=== PATIENT | female | born 1970 | race Caucasian/White ===

== ENCOUNTER 2017-03-11 13:22 | Emergency (ER) | payer OTHER ==
[~2017-03-11] VITALS: Ht 154.9 cm; Wt 88.0 kg
[~2017-03-11 13:22] MED LIST: AZIT-57 PO; BUPR-79 PO; CLON1TAB3 PO; RANI150T2 PO; RXC5 PO; SERT-234 PO; WARF5TAB7 PO
[2017-03-11] MEDS ORDERED: ONDANSETRON 4MG OD TAB ONE (13:31)
[2017-03-11 13:37] VITALS: TEMP 36.6; Ht 154.9 cm; Wt 88.0 kg
[2017-03-11] MEDS ORDERED: ALPR1TAB3 PO (14:56)
[2017-03-11] MEDS ORDERED: WARF5TAB7 PO (14:56)
--- NOTE | 2017-03-11 15:11 | DIAGNOSTIC IMAGING REPORT ---
HEAD WITHOUT CONTRAST (CT) CLINICAL HISTORY: 46 years-old Female with fall; stuck head on door frame; on coumadin. Acute head trauma status post fall TECHNIQUE: Multiple axial CT images of the head were obtained without contrast. A dose lowering technique was utilized adhering to the principles of ALARA. CT DOSE: 690.05 mGycm COMPARISON: Head CT 01/31/2015. FINDINGS: No acute intracranial hemorrhage, midline shift, intracranial mass, hydrocephalus, territorial ischemia or abnormal extra-axial collection. The calvarium is intact. Left mastoid air cells and middle ear cavities are clear. Right mastoid air cells are completely opacified. Fluid is also noted within the right middle ear cavity. Minimal mucosal thickening of the posterior ethmoid air cells. Soft tissues are unremarkable. IMPRESSION: 1. No acute intracranial abnormality. 2. Large right mastoid effusion with fluid also noted within the right middle ear cavity. The above report was generated using voice recognition software. It may contain grammatical, syntax or spelling errors. Electronically signed by: Cuate Cunningham M.D. 03/11/2017 3:10 PM Dictated Date/Time: 03/11/2017 3:07 PM
[2017-03-11 15:51] LABS: BASO % 0.1 %; BASO ABS # 0.02 K/uL (0-0.2); EOS % 0.1 %; EOS ABS # 0.02 K/uL (0-0.5); HEMATOCRIT 42.5 % (37-47); HEMOGLOBIN 14.6 g/dL (12.0-16.0); IG# 0.08 K/uL (0.00-0.02); LYMPH % 10.4 %; LYMPH ABS # 1.98 K/uL (1.2-3.4); MEAN CELL VOLUME 88.9 fL (80-100); MEAN CORPUSCULAR HEMOGLOBIN 30.5 pg (25-34); MEAN CORPUSCULAR HGB CONC 34.4 g/dl (32-36); MEAN PLATELET VOLUME 10.3 fL (7.4-10.4); MONO % 8.7 %; MONO ABS # 1.66 K/uL (0.11-0.59); NEUT % 80.3 %; NEUT ABS # 15.37 K/uL (1.4-6.5); PLATELET COUNT 230 K/uL (130-400); RED CELL DISTRIBUTION WIDTH CV 13.4 % (11.5-14.5); RED CELL DISTRIBUTION WIDTH SD 43.6 fL (36.4-46.3); WHITE BLOOD COUNT 19.13 K/uL (4.8-10.8)
[2017-03-11 16:04] LABS: INR 2.9 (0.9-1.1); PTT PATIENT 36.2 SECONDS (21.0-31.0)
[2017-03-11 16:12] LABS: ALBUMIN 3.5 gm/dl (3.4-5.0); BLOOD UREA NITROGEN 12 mg/dl (7-18); CALCIUM 9.3 mg/dl (8.5-10.1); CARBON DIOXIDE 25 mmol/L (21-32); CREATININE 0.79 mg/dl (0.60-1.20); GLUCOSE 85 mg/dl (70-99); POTASSIUM 3.4 mmol/L (3.5-5.1); SODIUM 139 mmol/L (136-145)
[2017-03-11 16:16] LABS: ALKALINE PHOSPHATASE 75 U/L (45-117); ALT/SGPT 21 U/L (12-78); AST/SGOT 24 U/L (15-37); TOTAL PROTEIN 7.5 gm/dl (6.4-8.2)
[2017-03-11] MEDS ORDERED: METOCLOPRAMIDE HCL INJ 5 MG/ML 2 ML VIAL IV. STA (16:43)
[2017-03-11 17:09] VITALS: BP 126/71; PULSE 76; O2SAT 94
[2017-03-11] MEDS ORDERED: METOCLOPRAMIDE HCL INJ 5 MG/ML 2 ML VIAL IM STA (17:11)
--- NOTE | 2017-03-11 17:54 | DIAGNOSTIC IMAGING REPORT ---
CHEST 2 VIEWS ROUTINE CLINICAL HISTORY: Fall. Elevated white blood cell count. COMPARISON STUDY: Chest radiograph August 15, 2015. FINDINGS: Incidental note is made of cholecystectomy clips. Lung volumes are normal. No consolidation is present. Pulmonary vascularity is normal. Cardiomediastinal silhouette is normal. IMPRESSION: No acute cardiopulmonary findings. Electronically signed by: Cali Daniels M.D. 03/11/2017 5:53 PM Dictated Date/Time: 03/11/2017 5:51 PM
--- NOTE | 2017-03-12 10:52 | EMERGENCY ROOM VISIT NOTE ---
ED Visit Note First contact with patient: 13:41 Chief Complaint: I passed out. History of Present Illness: Ms. Grier is a 46-year-old white female who is brought into the ED via ambulance after a syncopal episode. Patient reports she has been feeling well over the last few days. She reports she was visiting a friend and forgot her niacin medication. Earlier today she took one of her friends niacin medication which she believes was a stronger dose. She reports that within the hour of taking that medication she started feeling lightheaded. She reports she walked to the bathroom to splash some water on her face and when she was in the bathroom holding onto the sink she had a syncopal episode. She remembers during the syncopal episode that she struck her left parietal area on the door frame. She does not remember the next couple of minutes but is not exactly sure how long that was. She woke up with her friend standing over her yelling at her. EMS was activated and she was transported to the hospital. During transport patient was stable but had some nausea and was given 4 mg of Zofran. Currently patient is complaining of a left parietal headache in the area where she believes she struck the door frame. She describes this as a throbbing and pressure sensation. She rates her discomfort 9/10. Her pain is nonradiating. Her pain worsens with palpation of the scalp. She has not identified any alleviating factors related to the pain. She has not had any medication for pain prior to arrival at the hospital. Associated with her pain she reports she has mild blurry vision, sensations of fatigue and remains nauseated. She denies dizziness, lightheadedness, hearing changes, difficulty speaking, difficulty swallowing, difficulty coordinating body movements, neck pain, back pain, chest pain, shortness of breath, palpitations, abdominal pain, nausea, vomiting, extremity weakness/numbness/tingling, urinary incontinence, fecal incontinence. Review of Systems: As noted above in history of present illness. All body systems were reviewed and found to be negative as noted above. Past Medical History: Anxiety, depression, fibromyalgia, GERD, breast cancer, hypertension, portal thrombosis, status post hysterectomy, cholecystectomy, mastectomy and tubal ligation. Current Medications: Xanax, warfarin, ranitidine. Allergies to Medications: Adhesive, latex, acetaminophen, benzoin, naloxone, calamine, buprenorphine, tramadol, potassium, iodine, tromethamine. Social History: Patient is not employed; she feels safe in her home environment ; she admits to tobacco use. Physical Examination: Vital Signs: Date Time Temp Pulse Resp B/P (MAP) Pulse Ox O2 Delivery O2 Flow Rate FiO2 03/11/17 17:09 76 20 126/71 94 Room Air 03/11/17 15:13 82 20 108/66 93 Room Air 03/11/17 13:39 81 03/11/17 13:37 36.6 97 16 173/110 99 Room Air GENERAL: 46-year-old female in mild to moderate distress due to pain, chronically ill-appearing, afebrile and hemodynamically stable. NEUROLOGICAL: Awake, alert and oriented to person, place and time. Answering questions appropriately and following commands. Pronator drift test negative. Cranial nerves II through XII grossly intact. Good short-term and long-term recall. Good hand eye coordination. SKIN: Warm, dry and pink. No soft tissue trauma noted. HEENT: Atraumatic and normocephalic. Skull: Tenderness over the posterior aspect of the left parietal area without bony deformity, depressions, swelling or ecchymosis. No raccoon's eyes or tse signs. No drainage from the ears of the nares; no hemotympanum. Face: No bony deformity, bony tenderness, swelling or ecchymosis. PERRLA. EOMI without nystagmus. No malocclusion. Airway is patent. Speech is normal and clear. No carotid bruits. Trachea midline. No jugular venous distention. BACK: No tenderness over the bony cervical, thoracic and lumbar spines. No tenderness throughout the paraspinous muscles. Full range of motion of the cervical spine. No CVA tenderness. THORAX: Lungs sounds are clear to auscultation and equal bilaterally with symmetrical chest wall. No crepitus, tenderness, subcutaneous air or deformities noted. HEART: Regular rate and rhythm. No gallops, rubs or murmurs are appreciated. ABDOMEN: Flat, soft and nontender. Positive bowel sounds in all quadrants. No guarding, rigidity or organomegaly. EXTREMITIES: Moves all extremities well on command and with purpose. No tenderness over the shoulders, elbows, forearms, wrists, hands, hips, thighs, knees, lower legs, ankles or feet. All distal neurovascular statuses are intact and equal bilaterally. 4/5 muscle strength in movements of the shoulder , elbow, forearm, wrist, hips, knees and ankles. No calf tenderness or cords. ED Course: Patient is assessed as noted above. Patient's medication list was reviewed. Laboratory Testing: Test 03/11/17 15:25 Range/Units White Blood Count 19.13 4.8-10.8 K/uL Red Blood Count 4.78 4.2-5.4 M/uL Hemoglobin 14.6 12.0-16.0 g/dL Hematocrit 42.5 37-47 % Mean Corpuscular Volume 88.9 80-100 fL Mean Corpuscular Hemoglobin 30.5 25-34 pg Mean Corpuscular Hemoglobin Concent 34.4 32-36 g/dl Platelet Count 230 130-400 K/uL Mean Platelet Volume 10.3 7.4-10.4 fL Neutrophils (%) (Auto) 80.3 % Lymphocytes (%) (Auto) 10.4 % Monocytes (%) (Auto) 8.7 % Eosinophils (%) (Auto) 0.1 % Basophils (%) (Auto) 0.1 % Neutrophils # (Auto) 15.37 1.4-6.5 K/uL Lymphocytes # (Auto) 1.98 1.2-3.4 K/uL Monocytes # (Auto) 1.66 0.11-0.59 K/uL Eosinophils # (Auto) 0.02 0-0.5 K/uL Basophils # (Auto) 0.02 0-0.2 K/uL RDW Standard Deviation 43.6 36.4-46.3 fL RDW Coefficient of Variation 13.4 11.5-14.5 % Immature Granulocyte % (Auto) 0.4 % Immature Granulocyte # (Auto) 0.08 0.00-0.02 K/uL Prothrombin Time 30.2 9.0-12.0 SECONDS Prothromb Time International Ratio 2.9 0.9-1.1 Activated Partial Thromboplast Time 36.2 21.0-31.0 SECONDS Partial Thromboplastin Ratio 1.4 Sodium Level 139 136-145 mmol/L Potassium Level 3.4 3.5-5.1 mmol/L Chloride Level 105 98-107 mmol/L Carbon Dioxide Level 25 21-32 mmol/L Anion Gap 9.0 3-11 mmol/L Blood Urea Nitrogen 12 7-18 mg/dl Creatinine 0.79 0.60-1.20 mg/dl Est Creatinine Clear Calc Drug Dose 89.7 ml/min Estimated GFR () 104.0 Estimated GFR (Non- 89.8 BUN/Creatinine Ratio 14.8 10-20 Random Glucose 85 70-99 mg/dl Calcium Level 9.3 8.5-10.1 mg/dl Total Bilirubin 0.5 0.2-1 mg/dl Direct Bilirubin < 0.1 0-0.2 mg/dl Aspartate Amino Transf (AST/SGOT) 24 15-37 U/L Alanine Aminotransferase (ALT/SGPT) 21 12-78 U/L Alkaline Phosphatase 75 45-117 U/L Troponin I < 0.015 0-0.045 ng/ml Total Protein 7.5 6.4-8.2 gm/dl Albumin 3.5 3.4-5.0 gm/dl Should be noted that patient was asked for urine for testing and refused. Head CT: Was reviewed by myself and read by the radiologist showing no acute intracranial abnormalities or skull fractures. Radiologist does note a large right mastoid effusion with fluid and fluid within the right middle ear cavity. Chest X-Rays: Were read by myself and the radiologist showing no acute infiltrates, effusions or pneumothorax. No bony abnormalities and a normal heart silhouette. EKG: Was read by myself and shows normal sinus rhythm with a ventricular rate of 83 bpm. Normal axis, normal zinc complexes. No acute ST changes indicating ischemia, injury or infarction. This was compared to a previous from July 2015 and no acute changes were noted. During her stay IV attempts were made and were unsuccessful. She requested additional nausea medication and asked not to be given Zofran because she did not feel it was working. I did offer Reglan and because her IV was not initiated I was going to give it IM but she refused. I did additionally offer Zofran and she refused. Additionally she requested medication for headache; I reviewed her medication list and it appeared the only medication I could give her was narcotics but did not feel comfortable because of her head injury and her nausea. I discussed this issue with the patient and did find that she does not really have an allergic reaction to acetaminophen it was actually nausea and vomiting related to acetaminophen mixed with narcotics. I did offer the patient acetaminophen and she refused. Patient was reassessed multiple times during her stay in the emergency department. On review of the literature it appears that niacin can cause orthostatic hypotension; I did review this with the pharmacist. Patient's case was reviewed with Dr. Ron; we agreed on diagnostic approach, treatment, disposition and plan. Patient was educated about today's findings and instructed on her treatment plan ; she verbalized understanding and agreement with this plan. Clinical Impression: Concussion, syncope, leukocytosis. Decision-Making: Initially my differential diagnosis I considered syncope, arrhythmia, electrolyte abnormality, medication reaction, concussion, skull fracture, intercranial bleed, infection and other causes. Disposition: Patient discharged home in stable condition; after patient was discharged in was noted that she had difficulty finding a ride home from the hospital and she was offered assistance and refused. It was reported that she was able to contact her sister came to pick her up from the hospital. On discharge she still complained of a headache and nausea. She rated her headache 10/10 but refused any additional care. Plan: Patient was encouraged to avoid taking other people's medications and only her arm. Patient was encouraged to continue her current medications. Patient was encouraged to use 650 mg of acetaminophen every 6 hours as needed for pain. Patient was informed that her INR level was 2.9 which was the upper limits of normal for someone on Coumadin and I encouraged her to contact the Coumadin clinic and relay this information. Patient was informed that her white blood cell count was elevated and I could not find a cause of this; she was encouraged to contact her family physician for recheck of her white blood cell count levels. Patient was educated on signs of worsening head injury. Patient was given contact information for the [facility] and encouraged to follow up with the concussion clinic. Patient was encouraged to return to the ED for any signs of worsening concussion , fevers or any new/concerning symptoms.
== END 2017-03-11 18:33 | disposition home or self-care (01) ==
LOC: EDBD 13:22 → C.EDA 13:23
DX: S06.0X1A Concussion with loss of consciousness of 30 minutes or less, initial encounter (principal); W01.198A Fall on same level from slipping, tripping and stumbling with subsequent striking against other object, initial encounter; Y92.89 Other specified places as the place of occurrence of the external cause; F41.9 Anxiety disorder, unspecified; F32.9 Major depressive disorder, single episode, unspecified; M79.7 Fibromyalgia; K21.9 Gastro-esophageal reflux disease without esophagitis; Z85.3 Personal history of malignant neoplasm of breast; I10 Essential (primary) hypertension; Z90.710 Acquired absence of both cervix and uterus; Z90.49 Acquired absence of other specified parts of digestive tract; Z98.51 Tubal ligation status; Z90.10 Acquired absence of unspecified breast and nipple; Z79.01 Long term (current) use of anticoagulants; Z79.899 Other long term (current) drug therapy

== ENCOUNTER 2021-08-20 14:01 | Observation (INO) ==
[2021-08-20] MEDS ORDERED: SODIUM CHLORIDE 0.9% 500 ML IV STA (15:21)
[2021-08-20 16:32] LABS: Hematocrit (blood only) 38.9 % (37-47); Mean Corpuscular Hemoglobin 29.7 pg (25-34); Mean Corpuscular Hgb Conc 33.4 g/dL (32-36); Mean Corpuscular Volume 88.8 fL (80-100); Mean Platelet Volume 9.5 fL (7.4-10.4); Platelet Count 284 K/uL (130-400); RDW Coefficient of Variation 12.6 % (11.5-14.5); RDW Standard Deviation 40.7 fL (36.4-46.3); Red Blood Count 4.38 M/uL (4.2-5.4); White Blood Count 14.41 K/uL (4.8-10.8)
[2021-08-20 16:53] LABS: BUN Creatinine Ratio 28.3 (10-20); Calcium 9.5 mg/dl (8.5-10.1); Creatinine Clr Calc Pharmacy 141.6 ml/min; Est GFR (African American) 134.4 ml/min; Potassium 3.4 mmol/L (3.5-5.1)
[2021-08-20] MEDS ORDERED: SODIUM CHLORIDE 0.9% 1000ML 2,000 ML IV ONE (16:55)
--- NOTE | 2021-08-20 17:11 | Emergency Department Note ---
Impression & Plan Back pain, Abdominal pain, Chest pain ED Provider Note NAME: IVA GEORGE AGE: 50 SEX: F : 1970 ARRIVES VIA: Ambulance INFORMANT: Patient ED PROVIDER(S): Morgan Schneider DO CHIEF COMPLAINT: back pain HPI: Patient is a 50-year-old female who presents to the ER for back pain and abdominal pain. She notes it started about 3 days ago with severe lower abdomi nal pain. She has lower back pain associated with it. She notes she has been crawling around on the floor due to her back pain which is worse with standing up as well as twisting, turning, and bending. She believes her left leg feels little weaker than normal but cannot tell if this is just secondary to pain as with any movement she has severe 10 out of 10 pain which is sharp and stabbing. Denies any dysuria, urgency, or frequency. She denies any fevers, trauma, IV drug use or history of cancer. 3 days ago when it started she did have some belly pain which radiate up into the chest which has not reoccurred since 3 days ago. ROS: See above HPI for pertinent positives & negatives. A total of 10 systems reviewed and were otherwise negative. PAST MEDICAL HISTORY:See Below PAST SURGICAL HISTORY:See Below FAMILY HISTORY:See Below SOCIAL HISTORY:See Below HOME MEDICATIONS:See Below ALLERGIES:See Below VITALS:See Below PHYSICAL EXAMINATION: GENERAL: Laying in bed, alert, disheveled, mild distress laying in bed EYE EXAM: normal conjunctiva. OROPHARYNX: mucous membranes are moist LUNGS: Clear to auscultation. Normal chest wall mechanics HEART: no murmurs, S1 normal and S2 normal ABDOMEN: abdomen soft, non-tender, normo-active bowel sounds, no masses, no rebound or guarding. BACK: Back is symmetrical on inspection and there is no deformity, mild midline tenderness in the lower lumbar region tracking up through bilateral glutes UPPER EXTREMITIES: upper extremities are grossly normal. LOWER EXTREMITIES: Flexion and extension of the hips, knees, ankles, and EHL 5/5 bilaterally. Gross sensation is intact. DPs are 2/4 bilateral. NEURO EXAM: Normal sensorium, cranial nerves II-XII grossly intact, normal speech, no gross weakness of arms, no gross weakness of legs. MEDICAL DECISION MAKING: Patient is a 50-year-old female who presents the ER for abdominal pain and back pain as well as short period of chest pain 3 days ago when this all started. IV was established blood work was obtained. She was found to be slightly hypertensive and mildly tachycardic. Afebrile. Labs show mild leukocytosis of 14,000. No significant anemia. BMP with mild hypokalemia 3.4. LFTs bilirubin and troponin was negative. Lipase was unremarkable. UA with small amount of hematuria. was negative. She was also given additional steroids. She was discussed with the hospitalist Dr. Bang Corcoran for further evaluation CT abdomen pelvis and CT lumbar spine showed no acute pathology. Patient was given IV fluids and IV morphine. She is updated bedside. She was unable to get out of bed Triage Nursing notes reviewed. Limited review of prior medical records performed Vital Signs: reviewed and remarkable for HTN and tachy Differential diagnosis: Differential diagnoses includes but is not limited to lumbar radiculopathy, kidney stone, muscle strain, facture, cauda equina, mass, and disc herniation. ER treatment provided: See below Diagnostics interpreted by me: ECG: Sinus rhythm rate of 96 Normal axis No PVCs QTC 439 Cardiac Monitoring: An order was placed for continuous cardiac monitoring. The monitor shows a rate of 92 with sinus rhythm. Laboratory studies: As stated above and show below. Imaging studies: Abdomen pelvis was unremarkable CT lumbar spine was unremarkable Consultation(s): D/w Dr. Bang Liao for further evaluation Procedures: none Critical Care: None Past Med/Surg History Medical History GERD (gastroesophageal reflux disease) HTN (hypertension) PTSD (post-traumatic stress disorder) Surgical History H/O: hysterectomy History of cholecystectomy History of mastectomy History of tubal ligation No pertinent past surgical history Social History Smoking Status: Current every day smoker Tobacco Type: Cigarettes Preferred Language: Norwegian Feels Safe at Home: Yes Allergies Allergies Allergy/AdvReac Type Severity Reaction Status Date / Time latex Allergy Intermediate RASH Verified 08/20/21 17:52 acetaminophen Allergy Mild GI UPSET Verified 08/20/21 17:52 adhesive Allergy Mild PAPER Verified 08/20/21 17:52 TAPE- RASH strawberry Allergy Mild RASH Verified 08/20/21 17:52 benzoin Allergy Unknown . Verified 08/20/21 17:52 calamine Allergy Unknown RASH Verified 08/20/21 17:52 Iodine and Iodide Containing Allergy Unknown "GNP Verified 08/20/21 17:52 Produc IODIDES DECOLORIZED" ketorolac Allergy Unknown rash, Verified 08/20/21 17:52 vomiting tramadol Allergy Unknown rash, Verified 08/20/21 17:52 vomiting acesulfame AdvReac Unknown Ulcers/sores Verified 08/20/21 17:52 on tongue. buprenorphine AdvReac Unknown Ulcers/sores Verified 12/07/20 17:13 on tongue. naloxone AdvReac Unknown Ulcers/sores Verified 12/07/20 17:13 on tongue. Home Meds Home Medications Medication Instructions Recorded Confirmed bupropion HCl 150 mg tablet,12 hr 150 mg PO DAILY 08/20/21 08/20/21 sustained-release fluticasone propionate 50 1 - 2 spray INTRANASAL DAILY PRN 08/20/21 08/20/21 mcg/actuation nasal spray,suspension omeprazole 20 mg capsule,delayed 20 mg PO DAILY 08/20/21 08/20/21 release ondansetron HCl 8 mg tablet 8 mg PO DAILY PRN 08/20/21 08/20/21 sertraline 100 mg tablet 100 mg PO DAILY 08/20/21 08/20/21 Results & Data (ED) Vital Signs Vital Signs - 24 hr 08/20/21 15:19 08/20/21 16:46 08/20/21 17:59 Temperature 36.8 C 36.9 C Temperature Source Temporal Artery Scan Oral Pulse Rate 93 H Pulse Rate [Apical] 100 H 99 H Respiratory Rate 18 20 16 Respiratory Effort / Characteristics Non-Labored Non-Labored Non-Labored Spontaneous Respiratory Depth Normal Normal Normal Respiratory Pattern Regular Blood Pressure 125/83 Blood Pressure [Right Arm] 174/101 H 146/99 H Blood Pressure Mean 97 Blood Pressure Mean [Right Arm] 125 114 Blood Pressure Position [Right Arm] Sitting Lying Pulse Oximetry 95 98 96 Oxygen Delivery Method Room Air Room Air Room Air Sepsis Recent Fever Within 48 Hours No Sepsis New/Unexplained Change in Mental Status No Sepsis Action Taken by Nursing No Action Required Laboratory Data Result diagrams: 08/20/21 16:15 08/20/21 16:15 Lab Results 08/20/21 08/20/21 08/20/21 Range/Units 16:15 16:15 16:15 WBC 14.41 H (4.8-10.8) K/uL RBC 4.38 (4.2-5.4) M/uL Hgb 13.0 (12.0-16.0) g/dL Hct 38.9 (37-47) % MCV 88.8 (80-100) fL MCH 29.7 (25-34) pg MCHC 33.4 (32-36) g/dL RDW Std Deviation 40.7 (36.4-46.3) fL RDW Coeff of Caitlin 12.6 (11.5-14.5) % Plt Count 284 (130-400) K/uL MPV 9.5 (7.4-10.4) fL Sodium 137 (136-145) mmol/L Potassium 3.4 L (3.5-5.1) mmol/L Chloride 100 (98-107) mmol/L Carbon Dioxide 27 (21-32) mmol/L Anion Gap 10 (3-11) BUN 13 (6-23) mg/dl Creatinine 0.46 L (0.6-1.2) mg/dl Est Cr Clr Drug Dosing 141.6 ml/min Est GFR ( Amer) 134.4 ml/min Est GFR (Non-Af Amer) 116.0 ml/min BUN/Creatinine Ratio 28.3 H (10-20) Glucose 122 H (70-99(Fasting)) mg/dl Calcium 9.5 (8.5-10.1) mg/dl Total Bilirubin 0.8 (0.2-1.0) mg/dl Direct Bilirubin 0.1 (0-0.2) mg/dl AST 13 (13-39) U/L ALT 10 (7-52) U/L Alkaline Phosphatase 79 (34-104) U/L Troponin I High Sens 8.2 (0-14) pg/ml Total Protein 7.8 (6.0-8.3) gm/dl Albumin 4.0 (3.4-5.0) gm/dl Lipase 6 L (11-82) U/L Urine Color Urine Appearance (Clear) Urine pH (4.5-7.5) Ur Specific [place] (1.000-1.030) Urine Protein (Negative) Urine Glucose (UA) (Negative) Urine Ketones (Negative) Urine Blood (Negative) Urine Nitrite (Negative) Urine Bilirubin (Negative) Urine Urobilinogen (Negative) Ur Leukocyte Esterase (Negative) Urine WBC (Auto) (0-5) /hpf Urine RBC (Auto) (0-4) /hpf U Hyaline Cast (Auto) (0-5) /lpf U Epithel Cells (Auto) (0-5) /lpf Urine Bacteria (Auto) (Negative) Urine Test (Negative) 08/20/21 08/20/21 Range/Units 18:40 18:40 WBC (4.8-10.8) K/uL RBC (4.2-5.4) M/uL Hgb (12.0-16.0) g/dL Hct (37-47) % MCV (80-100) fL MCH (25-34) pg MCHC (32-36) g/dL RDW Std Deviation (36.4-46.3) fL RDW Coeff of Caitlin (11.5-14.5) % Plt Count (130-400) K/uL MPV (7.4-10.4) fL Sodium (136-145) mmol/L Potassium (3.5-5.1) mmol/L Chloride (98-107) mmol/L Carbon Dioxide (21-32) mmol/L Anion Gap (3-11) BUN (6-23) mg/dl Creatinine (0.6-1.2) mg/dl Est Cr Clr Drug Dosing ml/min Est GFR ( Amer) ml/min Est GFR (Non-Af Amer) ml/min BUN/Creatinine Ratio (10-20) Glucose (70-99(Fasting)) mg/dl Calcium (8.5-10.1) mg/dl Total Bilirubin (0.2-1.0) mg/dl Direct Bilirubin (0-0.2) mg/dl AST (13-39) U/L ALT (7-52) U/L Alkaline Phosphatase (34-104) U/L Troponin I High Sens (0-14) pg/ml Total Protein (6.0-8.3) gm/dl Albumin (3.4-5.0) gm/dl Lipase (11-82) U/L Urine Color Yellow Urine Appearance Clear (Clear) Urine pH 7.0 (4.5-7.5) Ur Specific [place] 1.007 (1.000-1.030) Urine Protein Trace H (Negative) Urine Glucose (UA) Negative (Negative) Urine Ketones Trace H (Negative) Urine Blood 1+ H (Negative) Urine Nitrite Negative (Negative) Urine Bilirubin Negative (Negative) Urine Urobilinogen Negative (Negative) Ur Leukocyte Esterase Negative (Negative) Urine WBC (Auto) 1-5 (0-5) /hpf Urine RBC (Auto) 0-4 (0-4) /hpf U Hyaline Cast (Auto) 0 (0-5) /lpf U Epithel Cells (Auto) >30 H (0-5) /lpf Urine Bacteria (Auto) Negative (Negative) Urine Test Negative (Negative) Administered Medications Discontinued Medications Dexamethasone Sodium Phosphate (DexamethasonePf 10 Mg/Ml Vial) 10 mg IV NOW ONE Stop: 08/20/21 19:03 Last Admin: 08/20/21 19:07 Dose: 10 mg Documented by: [id number] Sodium Chloride (Nss) 500 mls @ 999 mls/hr IV .Q31M STA Stop: 08/20/21 15:51 Last Infusion: 08/20/21 17:27 Dose: 0 mls/hr Documented by: [id number] Admin: 08/20/21 16:55 Dose: 999 mls/hr Documented by: [id number] Sodium Chloride (Nss 1000ml) 2,000 mls @ 999 mls/hr IV .Q2H1M ONE Stop: 08/20/21 18:55 Last Admin: 08/20/21 17:18 Dose: 999 mls/hr Documented by: [id number] Morphine Sulfate (Morphine Sulfate 10 Mg/Ml Carp/Vial) 6 mg IV NOW STA Stop: 08/20/21 17:45 Last Admin: 08/20/21 17:57 Dose: 6 mg Documented by: [id number] Ondansetron HCl (Ondansetron Inj 2 Mg/Ml 2 Ml Vial) 4 mg IV NOW STA Stop: 08/20/21 17:45 Last Admin: 08/20/21 17:56 Dose: 4 mg Documented by: [id number] Imaging Data Radiologist's Impression: Abdomen/Pelvis CT 08/20/21 16:56 CT abd pelvis wo con CLINICAL HISTORY: lower abd pain COMPARISON STUDY: No previous studies for comparison. CT DOSE: TECHNIQUE: Standard CT of the Abdomen and Pelvis was performed without IV contrast. The patient did not receive oral contrast. A dose lowering technique was utilized adhering to the principles of ALARA. FINDINGS: Lung base: Minimal linear atelectasis versus scarring is seen at the lung bases bilaterally. The lung bases are otherwise clear. Abdominal cavity: There is no evidence for abdominal mass, adenopathy or ascites. Liver: The liver is homogeneous in attenuation on these limited noncontrast images.. Spleen: The spleen is homogeneous in attenuation on these limited noncontrast images. Pancreas: The pancreas is homogeneous in attenuation on these limited noncontrast images. Gall Bladder: Surgical clips are present. Adrenal glands: The adrenal glands are normal in size and attenuation on these limited noncontrast images. Kidneys: The kidneys are homogeneous in attenuation on these limited noncontrast images. There is no evidence for gross renal mass, calculus or hydronephrosis bilaterally. Bowel: The bowel loops are normally placed within the abdomen and pelvis without evidence for dilatation or obstruction. There is no evidence for mass lesion. There are no inflammatory changes present. There is no evidence for free air. There is a normal appendix in the right lower quadrant. Bladder: There is mild distention of the bladder with no evidence for focal bladder wall thickening, calculus or diverticulum. : There is no evidence for pelvic mass or adenopathy. Vasculature: There is no evidence for focal aneurysmal dilatation of the abdominal aorta. Osseous structures: There is no acute osseous pathology. IMPRESSION: 1. No acute intra-abdominal or pelvic abnormality on these limited noncontrast images. ACT 112: Negative or not required by law. Electronically signed by: Lukas Haddad M.D. 08/20/2021 6:[address] 08/20/21 16:56 CT lumbar spine wo con CLINICAL HISTORY: lower back pain COMPARISON STUDY: 12/24/2009 CT DOSE: 711.61 mGy.cm TECHNIQUE: Standard CT of the Lumbar Spine was performed without IV contrast. A dose lowering technique was utilized adhering to the principles of ALARA. FINDINGS: Bones: The bones are osteopenic. There is no evidence for an acute fracture or malalignment. The heights of the vertebral bodies are maintained. The vertebral bodies are in anatomic alignment. Disc spaces: The disc space heights are maintained. Facet joints: There is mild hypertrophic facet joint disease at the lower 2 disc space levels. The sacroiliac joints are intact bilaterally. Soft tissues: The prevertebral soft tissues are within normal limits. IMPRESSION: 1. Osteopenia with no acute abnormality. 2. Mild hypertrophic facet joint disease. ACT 112: Negative or not required by law. Electronically signed by: Lukas Haddad M.D. 08/20/2021 5:58 PM Discharge Plan Visit Data Chief Complaint: Flank Pain ED Provider: Morgan Schneider Discharge Problem: Back pain, Abdominal pain, Chest pain Forms Stand Alone Forms: [facility] Prescriptions Prescriptions: No Action bupropion HCl 150 mg tablet sustained-release 12 hr 150 mg PO DAILY RF: 0 ondansetron HCl 8 mg tablet 8 mg PO DAILY PRN (Reason: Nausea) RF: 0 sertraline 100 mg tablet 100 mg PO DAILY RF: 0 omeprazole 20 mg capsule,delayed release(DR/EC) 20 mg PO DAILY RF: 0 fluticasone propionate 50 mcg/actuation spray,suspension 1 - 2 spray INTRANASAL DAILY PRN (Reason: Nasal Congestion) RF: 0 Referrals Referrals: PCP,NO [Primary Care Provider] - Discharge Problem: Back pain Qualifiers: Back pain location: low back pain Chronicity: acute Back pain laterality: unspecified Sciatica presence: unspecified whether sciatica present Qualified Code(s): M54.50 - Low back pain, unspecified Abdominal pain Qualifiers: Abdominal location: unspecified location Qualified Code(s): R10.9 - Unspecified abdominal pain Chest pain Qualifiers: Chest pain type: unspecified Qualified Code(s): R07.9 - Chest pain, unspecified
[2021-08-20 17:40] LABS: Bilirubin Direct 0.1 mg/dl (0-0.2); Bilirubin,Total 0.8 mg/dl (0.2-1.0); Total Protein 7.8 gm/dl (6.0-8.3)
[2021-08-20] MEDS ORDERED: MoRPHine SULFATE 10 MG/ML CARP/VIAL IV STA (17:44)
[2021-08-20] MEDS ORDERED: ONDANSETRON INJ 2 MG/ML 2 ML VIAL IV STA (17:44)
[2021-08-20 17:45] LABS: Troponin I High Sensitivity 8.2 pg/ml (0-14)
--- NOTE | 2021-08-20 18:01 | CT Scan Report ---
CT lumbar spine wo con CLINICAL HISTORY: lower back pain COMPARISON STUDY: 12/24/2009 CT DOSE: 711.61 mGy.cm TECHNIQUE: Standard CT of the Lumbar Spine was performed without IV contrast. A dose lowering techni que was utilized adhering to the principles of ALARA. FINDINGS: Bones: The bones are osteopenic. There is no evidence for an acute fracture or malalignment. The heig hts of the vertebral bodies are maintained. The vertebral bodies are in anatomic alignment. Disc spaces: The disc space heights are maintained. Facet joints: There is mild hypertrophic facet joint disease at the lower 2 disc space levels. The sa croiliac joints are intact bilaterally. Soft tissues: The prevertebral soft tissues are within normal limits. IMPRESSION: 1. Osteopenia with no acute abnormality. 2. Mild hypertrophic facet joint disease. ACT 112: Negative or not required by law. Electronically signed by: Lukas Haddad M.D. 08/20/2021 5:58 PM
--- NOTE | 2021-08-20 18:06 | CT Scan Report ---
CT abd pelvis wo con CLINICAL HISTORY: lower abd pain COMPARISON STUDY: No previous studies for comparison. CT DOSE: TECHNIQUE: Standard CT of the Abdomen and Pelvis was performed without IV contrast. The patient did not receive oral contrast. A dose lowering technique was utilized adhering to the principles of SANAZ [place]. FINDINGS: Lung base: Minimal linear atelectasis versus scarring is seen at the lung bases bilaterally. The lung bases are otherwise clear. Abdominal cavity: There is no evidence for abdominal mass, adenopathy or ascites. Liver: The liver is homogeneous in attenuation on these limited noncontrast images.. Spleen: The spleen is homogeneous in attenuation on these limited noncontrast images. Pancreas: The pancreas is homogeneous in attenuation on these limited noncontrast images. Gall Bladder: Surgical clips are present. Adrenal glands: The adrenal glands are normal in size and attenuation on these limited noncontrast im ages. Kidneys: The kidneys are homogeneous in attenuation on these limited noncontrast images. There is no evidence for gross renal mass, calculus or hydronephrosis bilaterally. Bowel: The bowel loops are normally placed within the abdomen and pelvis without evidence for dilatat ion or obstruction. There is no evidence for mass lesion. There are no inflammatory changes present. There is no evidence for free air. There is a normal appendix in the right lower quadrant. Bladder: There is mild distention of the bladder with no evidence for focal bladder wall thickening, calculus or diverticulum. : There is no evidence for pelvic mass or adenopathy. Vasculature: There is no evidence for focal aneurysmal dilatation of the abdominal aorta. Osseous structures: There is no acute osseous pathology. IMPRESSION: 1. No acute intra-abdominal or pelvic abnormality on these limited noncontrast images. ACT 112: Negative or not required by law. Electronically signed by: Lukas Haddad M.D. 08/20/2021 6:04 PM
[2021-08-20 18:51] LABS: Pregnancy Test, Urine Negative (Negative)
[2021-08-20 18:53] LABS: Appearance Urine Clear (Clear); Bacteria Urine Automated Negative (Negative); Bilirubin Urine Negative (Negative); Blood Urine 1+ (Negative); Cast Urine Automated 0 /lpf (0-5); Color Urine Yellow; Epithelial Cell Urine Auto >30 /lpf (0-5); Glucose Urine UA Negative (Negative); Ketones Urine Trace (Negative); Leukocyte Esterase Urine Negative (Negative); Nitrite Urine Negative (Negative); Protein Urine Trace (Negative); RBC Urine Automated 0-4 /hpf (0-4); Specific Gravity Urine 1.007 (1.000-1.030); Urobilinogen Urine Negative (Negative)
[2021-08-20] MEDS ORDERED: dexAMETHasone**PF** 10 MG/ML VIAL IV ONE (19:02)
[2021-08-20] MEDS ORDERED: POTASSIUM CHLORIDE CRTAB 20 MEQ TABCR PO STA (19:19)
[2021-08-20] MEDS ORDERED: ACETAMINOPHEN 1,000 MG/100 ML VIAL IV PRN (20:01)
--- NOTE | 2021-08-20 20:01 | History & Physical Report ---
Date of Service August 20, 2021 Assessment & Plan (1) Back pain: Plan: With radiculopathy symptoms Sudden onset without trauma history Need to rule out tumor given history of left breast cancer status post surgery/chemotherapy/history of BRCA gene mutation Suboptimal/anxiety possibly contributing to symptoms History chronic pain/fibromyalgia History terminated medication use agreement as per records. Hypertension, elevated upon arrival at the ER secondary to discomfort Currently not on maintenance medications portal vein thrombosis status post Coumadin Hypokalemia secondary to poor p.o. intake Hyperglycemia rule out DM ongoing tobacco abuse OBS GMF Analgesia Judicious narcotic use given history of terminated medication use agreement outpatient Lidoderm patch trial MRI lumbar spine Re: Back pain with radiculopathy symptoms sudden onset Orthopedic spine consult in a.m. Replace potassium Check hemoglobin A1c Nicotine patch as needed DVT prophylaxis. SCDs until MRI results known Lovenox 40 mg subcutaneous daily if no operative intervention contemplated Full code Text document was generated using Scripped voice recognition software. It may contain grammatical or spelling errors. Kindly contact undersigned for clarification of any documentation item in question. History of Present Illness Chief Complaint: Back pain, leg weakness Primary Care Provider: Dr. Daley History obtained from patient and records. Medical history significant for hypertension, left breast cancer status post surgery/chemotherapy, history of BRCA gene mutation, chronic pain/fibromyalgia, anxiety DSO/mood DSO/PTSD, history portal vein thrombosis status post Coumadin, ongoing tobacco abuse. Last confinement 2015 for back pain with right leg pain in the setting of Coumadin coagulopathy. 3 days ago, patient noted achy low back pain going to her abdomen with radiation more to the right lower extremity. Bilateral leg weakness more than the right. No incontinence. Fever. Some chills as per patient. No recollection of recent trauma. Some stressors at home. 2 weeks ago, patient noted abdominal pain attributed to anxiety/panic attack. Patient demanding for benzodiazepine medications upset that family doctor would not give into requests due to talk screen showing amphetamines as per documentation. Intractable discomfort at the ER. Decadron given at the ER. Medical History as above Surgical History : Breast capsulectomy, left mastectomy, breast prosthesis insertion, cholecystectomy, BTL, ENDER Family History : Breast cancer Personal/Social history : 1 pack daily, no EtOH intake, disabled Allergies Allergy/AdvReac Type Severity Reaction Status Date / Time latex Allergy Intermediate RASH Verified 08/20/21 17:52 adhesive Allergy Mild PAPER Verified 08/20/21 17:52 TAPE- RASH strawberry Allergy Mild RASH Verified 08/20/21 17:52 benzoin Allergy Unknown . Verified 08/20/21 17:52 calamine Allergy Unknown RASH Verified 08/20/21 17:52 Iodine and Iodide Containing Allergy Unknown "GNP Verified 08/20/21 17:52 Produc IODIDES DECOLORIZED" ketorolac Allergy Unknown rash, Verified 08/20/21 17:52 vomiting tramadol Allergy Unknown rash, Verified 08/20/21 17:52 vomiting acesulfame AdvReac Unknown Ulcers/sores Verified 08/20/21 17:52 on tongue. buprenorphine AdvReac Unknown Ulcers/sores Verified 12/07/20 17:13 on tongue. naloxone AdvReac Unknown Ulcers/sores Verified 12/07/20 17:13 on tongue. Home Medications Medication Instructions Recorded Confirmed Type bupropion HCl 150 mg tablet,12 hr 150 mg PO DAILY 08/20/21 08/20/21 History sustained-release fluticasone propionate 50 1 - 2 spray INTRANASAL DAILY PRN 08/20/21 08/20/21 History mcg/actuation nasal spray,suspension omeprazole 20 mg capsule,delayed 20 mg PO DAILY 08/20/21 08/20/21 History release ondansetron HCl 8 mg tablet 8 mg PO DAILY PRN 08/20/21 08/20/21 History sertraline 100 mg tablet 100 mg PO DAILY 08/20/21 08/20/21 History Past Med/Surg History Medical History GERD (gastroesophageal reflux disease) HTN (hypertension) PTSD (post-traumatic stress disorder) Surgical History H/O: hysterectomy History of cholecystectomy History of mastectomy History of tubal ligation No pertinent past surgical history Social History Smoking Status: Current every day smoker Tobacco Type: Cigarettes Preferred Language: Maori Feels Safe at Home: Yes Review of Systems Review of Systems: As per HPI, all other systems reviewed and negative Physical Exam Physical Exam: GENERAL: uncomfortable anxious, obese, no respiratory distress SKIN: Normal color, warm HEENT: Haring palpebral conjunctivae, no ptosis, dry buccal mucosa NECK : Supple, short neck, no tenderness CHEST : CTA, no tenderness HEART : RRR, no obvious murmurs ABDOMEN: Some distention, nontender BACK : Low back tenderness, positive SLR bilateral EXTREMITIES : Minimal LE swelling, no LE tenderness, no other conspicuous deformities noted NEUROLOGIC : Coherent, no facial asymmetry, BUE 4/5, BLE 3/5, gait and stance not assessed Results & Data Results & Data ([facility]) Vital Signs (Past 12 Hours) Vital Signs Temp Pulse Pulse Resp BP BP Pulse Ox 08/20/21 17:59 99 H 16 146/99 H 96 08/20/21 16:46 36.9 C 100 H 20 174/101 H 98 08/20/21 15:19 36.8 C 93 H 18 125/83 95 Laboratory Results Laboratory Results WBC 14.41 K/uL (4.8-10.8) H 08/20/21 16:15 RBC 4.38 M/uL (4.2-5.4) 08/20/21 16:15 Hgb 13.0 g/dL (12.0-16.0) 08/20/21 16:15 Hct 38.9 % (37-47) 08/20/21 16:15 MCV 88.8 fL (80-100) 08/20/21 16:15 MCH 29.7 pg (25-34) 08/20/21 16:15 MCHC 33.4 g/dL (32-36) 08/20/21 16:15 RDW Std Deviation 40.7 fL (36.4-46.3) 08/20/21 16:15 RDW Coeff of Caitlin 12.6 % (11.5-14.5) 08/20/21 16:15 Plt Count 284 K/uL (130-400) 08/20/21 16:15 MPV 9.5 fL (7.4-10.4) 08/20/21 16:15 Sodium 137 mmol/L (136-145) 08/20/21 16:15 Potassium 3.4 mmol/L (3.5-5.1) L 08/20/21 16:15 Chloride 100 mmol/L (98-107) 08/20/21 16:15 Carbon Dioxide 27 mmol/L (21-32) 08/20/21 16:15 Anion Gap 10 (3-11) 08/20/21 16:15 BUN 13 mg/dl (6-23) 08/20/21 16:15 Creatinine 0.46 mg/dl (0.6-1.2) L 08/20/21 16:15 Est Cr Clr Drug Dosing 141.6 ml/min 08/20/21 16:15 Est GFR ( Amer) 134.4 ml/min 08/20/21 16:15 Est GFR (Non-Af Amer) 116.0 ml/min 08/20/21 16:15 BUN/Creatinine Ratio 28.3 (10-20) H 08/20/21 16:15 Glucose 122 mg/dl (70-99(Fasting)) H 08/20/21 16:15 Calcium 9.5 mg/dl (8.5-10.1) 08/20/21 16:15 Total Bilirubin 0.8 mg/dl (0.2-1.0) 08/20/21 16:15 Direct Bilirubin 0.1 mg/dl (0-0.2) 08/20/21 16:15 AST 13 U/L (13-39) 08/20/21 16:15 ALT 10 U/L (7-52) 08/20/21 16:15 Alkaline Phosphatase 79 U/L (34-104) 08/20/21 16:15 Troponin I High Sens 8.2 pg/ml (0-14) 08/20/21 16:15 Total Protein 7.8 gm/dl (6.0-8.3) 08/20/21 16:15 Albumin 4.0 gm/dl (3.4-5.0) 08/20/21 16:15 Lipase 6 U/L (11-82) L 08/20/21 16:15 Urine Color Yellow 08/20/21 18:40 Urine Appearance Clear (Clear) 08/20/21 18:40 Urine pH 7.0 (4.5-7.5) 08/20/21 18:40 Ur Specific Nikolski 1.007 (1.000-1.030) 08/20/21 18:40 Urine Protein Trace (Negative) H 08/20/21 18:40 Urine Glucose (UA) Negative (Negative) 08/20/21 18:40 Urine Ketones Trace (Negative) H 08/20/21 18:40 Urine Blood 1+ (Negative) H 08/20/21 18:40 Urine Nitrite Negative (Negative) 08/20/21 18:40 Urine Bilirubin Negative (Negative) 08/20/21 18:40 Urine Urobilinogen Negative (Negative) 08/20/21 18:40 Ur Leukocyte Esterase Negative (Negative) 08/20/21 18:40 Urine WBC (Auto) 1-5 /hpf (0-5) 08/20/21 18:40 Urine RBC (Auto) 0-4 /hpf (0-4) 08/20/21 18:40 U Hyaline Cast (Auto) 0 /lpf (0-5) 08/20/21 18:40 U Epithel Cells (Auto) >30 /lpf (0-5) H 08/20/21 18:40 Urine Bacteria (Auto) Negative (Negative) 08/20/21 18:40 Urine Test Negative (Negative) 08/20/21 18:40 Impressions Abdomen/Pelvis CT 08/20/21 16:56 CT abd pelvis wo con CLINICAL HISTORY: lower abd pain COMPARISON STUDY: No previous studies for comparison. CT DOSE: TECHNIQUE: Standard CT of the Abdomen and Pelvis was performed without IV contrast. The patient did not receive oral contrast. A dose lowering technique was utilized adhering to the principles of ALARA. FINDINGS: Lung base: Minimal linear atelectasis versus scarring is seen at the lung bases bilaterally. The lung bases are otherwise clear. Abdominal cavity: There is no evidence for abdominal mass, adenopathy or ascites. Liver: The liver is homogeneous in attenuation on these limited noncontrast images.. Spleen: The spleen is homogeneous in attenuation on these limited noncontrast images. Pancreas: The pancreas is homogeneous in attenuation on these limited noncontrast images. Gall Bladder: Surgical clips are present. Adrenal glands: The adrenal glands are normal in size and attenuation on these limited noncontrast images. Kidneys: The kidneys are homogeneous in attenuation on these limited noncontrast images. There is no evidence for gross renal mass, calculus or hydronephrosis bilaterally. Bowel: The bowel loops are normally placed within the abdomen and pelvis without evidence for dilatation or obstruction. There is no evidence for mass lesion. There are no inflammatory changes present. There is no evidence for free air. There is a normal appendix in the right lower quadrant. Bladder: There is mild distention of the bladder with no evidence for focal bladder wall thickening, calculus or diverticulum. : There is no evidence for pelvic mass or adenopathy. Vasculature: There is no evidence for focal aneurysmal dilatation of the abdominal aorta. Osseous structures: There is no acute osseous pathology. IMPRESSION: 1. No acute intra-abdominal or pelvic abnormality on these limited noncontrast images. ACT 112: Negative or not required by law. Electronically signed by: Lukas Haddad M.D. 08/20/2021 6:[address] 08/20/21 16:56 CT lumbar spine wo con CLINICAL HISTORY: lower back pain COMPARISON STUDY: 12/24/2009 CT DOSE: 711.61 mGy.cm TECHNIQUE: Standard CT of the Lumbar Spine was performed without IV contrast. A dose lowering technique was utilized adhering to the principles of ALARA. FINDINGS: Bones: The bones are osteopenic. There is no evidence for an acute fracture or malalignment. The heights of the vertebral bodies are maintained. The vertebral bodies are in anatomic alignment. Disc spaces: The disc space heights are maintained. Facet joints: There is mild hypertrophic facet joint disease at the lower 2 disc space levels. The sacroiliac joints are intact bilaterally. Soft tissues: The prevertebral soft tissues are within normal limits. IMPRESSION: 1. Osteopenia with no acute abnormality. 2. Mild hypertrophic facet joint disease. ACT 112: Negative or not required by law. Electronically signed by: Lukas Haddad M.D. 08/20/2021 5:58 PM Diagnostic Findings EKG as per my interpretation : Rate 95, NSR, normal axis, T wave abnormalities septal leads (1) Back pain Back pain laterality: unspecified Back pain location: low back pain Chronicity: acute Sciatica presence: unspecified whether sciatica present Qualified Code(s): M54.50 - Low back pain, unspecified
[2021-08-20] MEDS ORDERED: hydrOXYzine HCl 10 MG TAB PO PRN (20:03)
[2021-08-20] MEDS ORDERED: LACTATED RINGER'S 1,000 ML IV ONE (20:15)
[2021-08-20] MEDS ORDERED: LORazepam 0.25 MG in SYRINGE 0.125 ML IV PRN (20:15)
[2021-08-20] MEDS ORDERED: oxyCODONE HCL IR 5 MG TAB (IMMEDIATE RELEASE) ONE (20:40)
[2021-08-20] MEDS: LIDOCAINE 5% 1 PATCH TD SCH (20:45)
[2021-08-20] MEDS: oxyCODONE HCL IR 5 MG TAB (IMMEDIATE RELEASE) PO PRN (20:46)
[2021-08-20] MEDS ORDERED: ACETAMINOPHEN 325 MG TAB PO PRN (22:07)
[2021-08-21] MEDS ORDERED: LORazepam 1 MG in SYRINGE 0.5 ML IV STA (00:40)
[2021-08-21] MEDS ORDERED: GADOBUTROL 65ML VIAL IV ONE (01:46)
[2021-08-21] MEDS: oxyCODONE HCL IR 5 MG TAB (IMMEDIATE RELEASE) PO PRN ×4 (02:30→19:31)
[2021-08-21 03:51] LABS: Amphetamines+Metham, Urine Neg (Neg); Barbiturates, Urine Neg (Neg); Benzodiazepine, Urine Neg (Neg); Cocaine, Urine Neg (Neg); MDMA (Ecstacy), Urine Pos (Neg); Methadone, Urine Neg (Neg); Opiate, Urine Pos (Neg); Phencyclidine, Urine Neg (Neg)
[2021-08-21 07:08] LABS: Hematocrit (blood only) 35.9 % (37-47); Hemoglobin 12.1 g/dL (12.0-16.0); Immature Granulocytes # (auto) 0.04 K/uL (0.00-0.02); Immature Granulocytes % (auto) 0.3 %; Lymphocytes # (auto) 0.94 K/uL (1.2-3.4); Lymphocytes % (auto) 6.9 %; Mean Corpuscular Hgb Conc 33.7 g/dL (32-36); Mean Corpuscular Volume 89.1 fL (80-100); Mean Platelet Volume 9.7 fL (7.4-10.4); Monocytes # (auto) 0.41 K/uL (0.11-0.59); Neutrophils # (auto) 12.29 K/uL (1.4-6.5); Neutrophils % (auto) 89.8 %; Platelet Count 317 K/uL (130-400); RDW Coefficient of Variation 12.5 % (11.5-14.5); RDW Standard Deviation 40.1 fL (36.4-46.3); Red Blood Count 4.03 M/uL (4.2-5.4); White Blood Count 13.68 K/uL (4.8-10.8)
[2021-08-21 07:23] LABS: BUN Creatinine Ratio 26.2 (10-20); Calcium 8.9 mg/dl (8.5-10.1); Creatinine Clr Calc Pharmacy 154.5 ml/min; Est GFR (African American) 138.5 ml/min; Est GFR (Non-African American) 119.5 ml/min; Potassium 3.6 mmol/L (3.5-5.1)
[2021-08-21 07:49] LABS: Estimated Average Glucose 120 mg/dl; Hemoglobin A1C 5.8 % (4.5-5.6)
[2021-08-21] MEDS: SERTRALINE HCL 100 MG TABLET PO SCH (08:34)
[2021-08-21] MEDS: PANTOprazole 40 MG TAB PO SCH (08:34)
[2021-08-21] MEDS: buPROPion SR 150 MG TABCR PO SCH (08:34)
--- NOTE | 2021-08-21 09:10 | Magnetic Resonance Report ---
MRI OF THE LUMBAR SPINE COMBO CLINICAL HISTORY: Low back pain. Lower extremity weakness. COMPARISON STUDY: CT scan of the lumbar spine dated 08/20/2021. TECHNIQUE: MRI of the lumbar spine is performed utilizing various T1 and T2-weighted sequences in the axial and sagittal planes. Contrast-enhanced sequences are acquired following the IV administration of 8.5 cc of Gadavist. FINDINGS: Lumbar spine: Vertebral body height and alignment are maintained throughout the lumbar spine. Normal marrow signal intensity is preserved throughout the visualized bony structures. The transverse and sp inous processes appear intact. There is no evidence of spondylolysis. No definite enhancing or destru ctive bony lesion is seen. Intervertebral discs: There is moderate degenerative disc desiccation. The disc spaces are maintained . Spinal cord: The visualized spinal cord is normal in morphology and signal intensity. The conus medul john terminates at the level of L2. The nerve roots of the cauda equina are normal in morphology. No abnormal postcontrast enhancement is identified. L1-L2: Unremarkable. L2-L3: Unremarkable. L3-L4: Unremarkable. L4-L5: Mild facet arthropathy is of no consequence. The central canal and neural foramina are patent. L5-S1: There is minimal posterior disc bulge. The central canal and neural foramina are patent. Facet arthropathy is of no consequence. Sacrum: The visualized sacrum is normal in morphology and signal intensity. Soft tissues: The paraspinous soft tissues are within normal limits. The retroperitoneal structures a re grossly unremarkable but incompletely evaluated. IMPRESSION: 1. There is no disc herniation, central canal stenosis, or neural foraminal narrowing seen throughout the lumbar spine. 2. No destructive bony process is identified. Dictated: 08/21/2021 8:52 AM Transcribed: 08/21/2021 9:00 AM Isi [id number] RACHEL_Macey Electronically signed by: Lance Marcelo M.D. 08/21/2021 9:09 AM
[2021-08-21] MEDS: LIDOCAINE 5% 1 PATCH TD SCH (09:45)
--- NOTE | 2021-08-21 09:45 | Consultation ---
Date of Consultation August 21, 2021 Assessment & Plan (1) Back pain: Patient has a 3-day history of acute lower back pain with right lower extremity symptoms and perceived bilateral lower extremity weakness. I have reviewed along with Dr. Cox MRI and CTs of her lumbar spine. There are no acute surgical indications. No real reason based upon MRI and CT scan review to explain her bilateral lower extremity symptoms especially her weakness. Strength is intact to detailed testing on my exam today. If symptoms/weakness lower extremities persist, would possibly consider neurology consult. She has a history of breast cancer. no evidence of tumor seen on lumbar MRI. Would recommend physical therapy. Ambulate ad katie. We will sign off. Please do not hesitate to contact us with any further questions. History of Present Illness Reason for Consultation: Back pain and bilateral lower extremity weakness Attending Physician: Gerber Coleman MD History of Present Illness Is a 50-year-old female that we are seeing consultation regarding her lumbar spine. She started with acute onset of back pain 3 days ago without precipitating accident, trauma, fall. Pain is described as a band across her lumbar spine rating down predominantly the right lower extremity. It is difficult for her to give me a specific pain pattern. She notes perceived weakness bilateral lower extremities. She also states that radiates into her abdomen with ambulation. She states she has been ambling independently at home. Denies bowel or bladder changes. Denies perineum numbness. Denies bilateral lower extremity numbness. Was not taking anything for pain control. Reports all positions including standing, walking, seated position and lying down exacerbate her pain and nothing really alleviated it. Allergies Allergy/AdvReac Type Severity Reaction Status Date / Time latex Allergy Intermediate RASH Verified 08/20/21 17:52 adhesive Allergy Mild PAPER Verified 08/20/21 17:52 TAPE- RASH strawberry Allergy Mild RASH Verified 08/20/21 17:52 benzoin Allergy Unknown . Verified 08/20/21 17:52 calamine Allergy Unknown RASH Verified 08/20/21 17:52 Iodine and Iodide Containing Allergy Unknown "GNP Verified 08/20/21 17:52 Produc IODIDES DECOLORIZED" ketorolac Allergy Unknown rash, Verified 08/20/21 17:52 vomiting tramadol Allergy Unknown rash, Verified 08/20/21 17:52 vomiting acesulfame AdvReac Unknown Ulcers/sores Verified 08/20/21 17:52 on tongue. buprenorphine AdvReac Unknown Ulcers/sores Verified 12/07/20 17:13 on tongue. naloxone AdvReac Unknown Ulcers/sores Verified 12/07/20 17:13 on tongue. Home Medications Medication Instructions Recorded Confirmed Type bupropion HCl 150 mg tablet,12 hr 150 mg PO DAILY 08/20/21 08/20/21 History sustained-release fluticasone propionate 50 1 - 2 spray INTRANASAL DAILY PRN 08/20/21 08/20/21 History mcg/actuation nasal spray,suspension omeprazole 20 mg capsule,delayed 20 mg PO DAILY 08/20/21 08/20/21 History release ondansetron HCl 8 mg tablet 8 mg PO DAILY PRN 08/20/21 08/20/21 History sertraline 100 mg tablet 100 mg PO DAILY 08/20/21 08/20/21 History Patient History Medical History GERD (gastroesophageal reflux disease) HTN (hypertension) PTSD (post-traumatic stress disorder) Surgical History H/O: hysterectomy History of cholecystectomy History of mastectomy History of tubal ligation No pertinent past surgical history Social History Smoking Status: Current every day smoker Tobacco Type: Cigarettes Cigarettes Per Day: 20; Second Hand Exposure: No; Do You Dip or Chew Tobacco: No; Tobacco Cessation Education Requested by Patient: No Hx Alcohol Use: No Hx Substance Use: No Preferred Language: Namibian Communication Ability: Effective 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 She has diffuse superficial tenderness throughout the lumbar spine. No ecchymosis or lacerations noted. Negative logrolling bilateral lower extremities Negative tension signs bilateral lower extremities Motor testing is 5 5 bilateral EHL, dorsiflexion, plantarflexion, quadriceps, hamstrings, hip flexors, hip abductor's and hip adductor's bilaterally. Results & Data ([facility]) Vital Signs (Past 12 Hours) Vital Signs Temp Pulse Resp BP Pulse Ox 08/21/21 07:10 36.5 C 78 18 112/76 91 08/20/21 22:02 36.7 C 89 18 125/82 96 Diagnostic Findings [place], [place] [phone] Magnetic Resonance Report Patient:IVA GEORGE Admit Date:08/20/21 MR#:[id number] Address1:[address] [address] Acct ID:[id number] Address2: Date:1970 [facility] [place] [address] Age:50 Location: Sex:F Room/Bed:E315 Att Phy:Gerber Coleman MD Diagnosis:BACK PAIN Jolene Phy:PCP,NO Service Date:08/21/21 Fam Phy: Interpreting Phy:Lance Marcelo MDAdmit Phy:Buddy Zepeda MD Ordering Phy:Buddy Zepeda MD cc: ~ MRI OF THE LUMBAR SPINE COMBO CLINICAL HISTORY: Low back pain. Lower extremity weakness. COMPARISON STUDY: CT scan of the lumbar spine dated 08/20/2021. TECHNIQUE: MRI of the lumbar spine is performed utilizing various T1 and T2- weighted sequences in the axial and sagittal planes. Contrast-enhanced sequences are acquired following the IV administration of 8.5 cc of Gadavist. FINDINGS: Lumbar spine: Vertebral body height and alignment are maintained throughout the lumbar spine. Normal marrow signal intensity is preserved throughout the visualized bony structures. The transverse and spinous processes appear intact. There is no evidence of spondylolysis. No definite enhancing or destructive bony lesion is seen. Intervertebral discs: There is moderate degenerative disc desiccation. The disc spaces are maintained. Spinal cord: The visualized spinal cord is normal in morphology and signal intensity. The conus medullaris terminates at the level of L2. The nerve roots of the cauda equina are normal in morphology. No abnormal postcontrast enhancement is identified. L1-L2: Unremarkable. L2-L3: Unremarkable. L3-L4: Unremarkable. L4-L5: Mild facet arthropathy is of no consequence. The central canal and neural foramina are patent. L5-S1: There is minimal posterior disc bulge. The central canal and neural foramina are patent. Facet arthropathy is of no consequence. Sacrum: The visualized sacrum is normal in morphology and signal intensity. Soft tissues: The paraspinous soft tissues are within normal limits. The retroperitoneal structures are grossly unremarkable but incompletely evaluated. IMPRESSION: 1. There is no disc herniation, central canal stenosis, or neural foraminal narrowing seen throughout the lumbar spine. 2. No destructive bony process is identified. Dictated: 08/21/2021 8:52 AM Transcribed: 08/21/2021 9:00 AM Isi [id number] RACHEL_Macey Electronically signed by: Lance Marcelo M.D. 08/21/2021 9:09 AM Dictated:08/21/21851 Transcribed: 08/21/218[address] [place], [place] [phone] CT Scan Report Patient:IVA GEORGE Admit Date:08/20/21 MR#:[id number] Address1:[address] [place] [address] [address] Acct ID:[id number] Address2: Date:1970 [facility] Zip:[place] [address] Age:50 Location:ED Sex:F Room/Bed: Att Phy: Diagnosis:FLANK PAIN Jolene Phy:PCP,NO Service Date:08/20/21 Fam Phy: Interpreting Phy:Lukas Haddad MDAdmit Phy: Ordering Phy:Morgan Schneiedr DO cc: ~ CT lumbar spine wo con CLINICAL HISTORY: lower back pain COMPARISON STUDY: 12/24/2009 CT DOSE: 711.61 mGy.cm TECHNIQUE: Standard CT of the Lumbar Spine was performed without IV contrast. A dose lowering technique was utilized adhering to the principles of ALARA. FINDINGS: Bones: The bones are osteopenic. There is no evidence for an acute fracture or malalignment. The heights of the vertebral bodies are maintained. The vertebral bodies are in anatomic alignment. Disc spaces: The disc space heights are maintained. Facet joints: There is mild hypertrophic facet joint disease at the lower 2 disc space levels. The sacroiliac joints are intact bilaterally. Soft tissues: The prevertebral soft tissues are within normal limits. IMPRESSION: 1. Osteopenia with no acute abnormality. 2. Mild hypertrophic facet joint disease. ACT 112: Negative or not required by law. Electronically signed by: Lukas Haddad M.D. 08/20/2021 5:58 PM Dictated:08/20/211753 Transcribed: 08/20/211753 Document Auto-Saved (1) Back pain Back pain laterality: unspecified Back pain location: low back pain Chronicity: acute Sciatica presence: unspecified whether sciatica present Qualified Code(s): M54.50 - Low back pain, unspecified
[2021-08-21] MEDS: PROMETHAZINE HCL 12.5 MG in SODIUM CHLORIDE 0.9% 50 ML IV PRN ×2 (13:00→19:48)
--- NOTE | 2021-08-21 16:35 | Hospitalist Progress Note ---
Date of Service August 21, 2021 Assessment & Plan (1) Back pain: Plan: With radiculopathy symptoms Sudden onset without trauma history Need to rule out tumor given history of left breast cancer status post surgery/chemotherapy/history of BRCA gene mutation Suboptimal/anxiety possibly contributing to symptoms History chronic pain/fibromyalgia History terminated medication use agreement as per records. MRI has been negative for any significant findings Appreciate Ortho input and recommended Will start muscle relaxant and PT and OT evaluation Likely discharge tomorrow if is stable Hypertension, elevated upon arrival at the ER secondary to discomfort Currently not on maintenance medications Portal vein thrombosis status post Coumadin Hypokalemia secondary to poor p.o. intake Hyperglycemia rule out DM-hemoglobin A1c is 5.8 ongoing tobacco abuse-strongly advised to quit smoking DVT prophylaxis. SCDs until MRI results known Lovenox 40 mg subcutaneous daily if no operative intervention contemplated-we will start from tomorrow if the patient is not being discharged Full code Admission and Anticipated Discharge Date Admission Date: August 20, 2021 Subjective 08/21/2021 The patient was seen and examined in medical floor She complains to have pain in the lower spine with radiation to the right leg for the last 3 days Denies any abnormal movements of the back, any weight lift or any trauma Denies any other symptoms associated with it and the condition seems to be a little bit better Review of Systems Review of Systems: All systems reviewed and are unremarkable except as noted below Musculoskeletal: Lower back pain on the right side Physical Exam Physical Exam: Lying in bed comfortably Constitutional: well developed, well nourished and + well hydrated; not ill appearing Eyes: PERRL, conjunctivae normal, anicteric sclerae ENMT: external ear and nose normal, oropharynx normal Neck: trachea midline, no thyromegaly Respiratory: no respiratory distress Auscultation: lungs clear to auscultation bilaterally Cardiovascular: Rate/Rhythm: regular rate and regular rhythm; not tachycardic Heart Sounds: normal S1 and normal S2; no murmur Extremities: no edema Gastrointestinal (Abdomen): Inspection/Auscultation: normal bowel sounds; abdomen not distended Percussion/Palpation: abdomen soft; abdomen nontender Musculoskeletal: No acute arthritis involving any joint. Tenderness right paraspinal area in the lower lumbar region Neurologic: Alert, awake and oriented x3 Psychiatric: A+Ox3, euthymic affect Lymphatic: no cervical or axillary lymphadenopathy Results & Data Results & Data ([facility]) Vital Signs (Past 12 Hours) Vital Signs Temp Pulse Resp BP Pulse Ox 08/21/21 15:47 36.6 C 80 17 106/71 94 08/21/21 07:10 36.5 C 78 18 112/76 91 Laboratory Results Short CBC 08/20/21 08/21/21 Range/Units 16:15 06:12 WBC 14.41 H 13.68 H (4.8-10.8) K/uL Hgb 13.0 12.1 (12.0-16.0) g/dL Hct 38.9 35.9 L (37-47) % Plt Count 284 317 (130-400) K/uL BMP 08/20/21 08/21/21 16:15 06:12 Sodium 137 139 Potassium 3.4 L 3.6 Chloride 100 106 Carbon Dioxide 27 26 BUN 13 11 Creatinine 0.46 L 0.42 L Glucose 122 H 141 H Calcium 9.5 8.9 Cardiac Enzymes 08/20/21 Range/Units 16:15 Total Creatine Kinase 33 (26-192) U/L Liver Function 08/20/21 Range/Units 16:15 Total Bilirubin 0.8 (0.2-1.0) mg/dl Direct Bilirubin 0.1 (0-0.2) mg/dl AST 13 (13-39) U/L ALT 10 (7-52) U/L Alkaline Phosphatase 79 (34-104) U/L Albumin 4.0 (3.4-5.0) gm/dl Urine 08/20/21 Range/Units 18:40 Urine Color Yellow Urine Appearance Clear (Clear) Urine pH 7.0 (4.5-7.5) Ur Specific [place] 1.007 (1.000-1.030) Urine Protein Trace H (Negative) Urine Glucose (UA) Negative (Negative) Medications Administered Current Inpatient Medications Acetaminophen (Acetaminophen 325 Mg Tab) 650 mg PO Q4H PRN PRN Reason: pain/fever Stop: 09/19/21 22:06 Baclofen (Baclofen 10 Mg Tab) 5 mg PO TID [facility] Stop: 09/20/21 20:59 Bupropion HCl (Bupropion Sr 150 Mg Tabcr) 150 mg PO DAILY [facility] Stop: 09/20/21 08:59 Last Admin: 08/21/21 08:34 Dose: 150 mg Documented by: Hydroxyzine HCl (Hydroxyzine Hcl 10 Mg Tab) 10 mg PO QID PRN PRN Reason: Anxiety Stop: 09/19/21 20:02 Acetaminophen (Ofirmev) 1,000 mg in 100 mls @ 400 mls/hr IV Q8H PRN PRN Reason: pain not relieved by po meds Stop: 08/23/21 20:00 Lorazepam 0.25 mg/ Syringe 0.25 mls @ 2 mls/min IV Q1H PRN PRN Reason: anxiety before/during mri Stop: 09/19/21 20:14 Last Admin: 08/20/21 23:57 Dose: 2 mls/min Documented by: Promethazine HCl 12.5 mg/ (Sodium Chloride) 50.5 mls @ 202 mls/hr IV Q6H PRN PRN Reason: Nausea And Vomiting Stop: 09/19/21 22:06 Last Infusion: 08/21/21 13:20 Dose: Infused Documented by: Lidocaine (Lidocaine 5% 1 Patch) 1 patch TD QAM [facility] Stop: 09/19/21 20:04 Last Admin: 08/21/21 09:45 Dose: 1 patch Documented by: Miscellaneous (Remove Lidoderm Patch) 1 ea N/A DAILY@2100 [facility] Stop: 09/20/21 07:59 Last Admin: 08/21/21 08:35 Dose: 1 ea Documented by: Oxycodone HCl (Oxycodone Hcl Ir 5 Mg Tab (Immediate Release)) 5 mg PO Q4H PRN PRN Reason: Pain Stop: 09/03/21 20:00 Last Admin: 08/21/21 12:42 Dose: 5 mg Documented by: Pantoprazole Sodium (Pantoprazole 40 Mg Tab) 40 mg PO DAILY [facility] Stop: 09/20/21 08:59 Last Admin: 08/21/21 08:34 Dose: 40 mg Documented by: Sertraline HCl (Sertraline Hcl 100 Mg Tablet) 100 mg PO DAILY [facility] Stop: 09/20/21 08:59 Last Admin: 08/21/21 08:34 Dose: 100 mg Documented by: (1) Back pain Back pain laterality: unspecified Back pain location: low back pain Chronicity: acute Sciatica presence: unspecified whether sciatica present Qualified Code(s): M54.50 - Low back pain, unspecified
[2021-08-21] MEDS: BACLOFEN 10 MG TAB PO SCH (20:59)
[2021-08-21] MEDS: NICOTINE 21 MG/24 HR TDSY TD SCH (21:41)
--- NOTE | 2021-08-21 22:04 | Electrocardiogram Report ---
Test Reason : Blood Pressure : / mmHG Vent. Rate : 096 BPM Atrial Rate : 096 BPM P-R Int : 132 ms QRS Dur : 084 ms QT Int : 348 ms P-R-T Axes : 051 063 038 degrees QTc Int : 439 ms Normal sinus rhythm Normal ECG When compared with ECG of 07-DEC-2020 15:55, No significant change was found Confirmed by Jeremiah Eli ([id number]) on 08/21/2021 10:03:41 PM Referred By: REFERRED SELF Confirmed By:Jeremiah Eli
[2021-08-22] MEDS: oxyCODONE HCL IR 5 MG TAB (IMMEDIATE RELEASE) PO PRN ×5 (04:30→22:38)
[2021-08-22] MEDS: BACLOFEN 10 MG TAB PO SCH ×3 (08:58→22:02)
[2021-08-22] MEDS: PANTOprazole 40 MG TAB PO SCH (08:59)
[2021-08-22] MEDS: buPROPion SR 150 MG TABCR PO SCH (08:59)
[2021-08-22] MEDS: ENOXAPARIN INJ 40 MG/0.4 ML SYR SQ SCH (08:59)
[2021-08-22] MEDS: SERTRALINE HCL 100 MG TABLET PO SCH (08:59)
[2021-08-22] MEDS: LIDOCAINE 5% 1 PATCH TD SCH (09:00)
[2021-08-22] MEDS: NICOTINE 21 MG/24 HR TDSY TD SCH (09:00)
[2021-08-22] MEDS: ONDANSETRON 4 MG OD TAB PO PRN (14:36)
--- NOTE | 2021-08-22 16:38 | Hospitalist Progress Note ---
Date of Service August 22, 2021 Assessment & Plan (1) Back pain: Plan: With radiculopathy symptoms Sudden onset without trauma history Need to rule out tumor given history of left breast cancer status post surgery/chemotherapy/history of BRCA gene mutation Suboptimal/anxiety possibly contributing to symptoms History chronic pain/fibromyalgia History terminated medication use agreement as per records. MRI has been negative for any significant findings Appreciate Ortho input and recommended Will start muscle relaxant and PT and OT evaluation Pain is not yet reasonably controlled Awaiting PT evaluation before discharge likely tomorrow Hypertension, elevated upon arrival at the ER secondary to discomfort Currently not on maintenance medications Portal vein thrombosis status post Coumadin Hypokalemia secondary to poor p.o. intake Hyperglycemia rule out DM-hemoglobin A1c is 5.8 ongoing tobacco abuse-strongly advised to quit smoking DVT prophylaxis. SCDs until MRI results known Lovenox 40 mg subcutaneous daily if no operative intervention contemplated-we will start from tomorrow if the patient is not being discharged Full code Admission and Anticipated Discharge Date Admission Date: August 20, 2021 Subjective 08/21/2021 The patient was seen and examined in medical floor She complains to have pain in the lower spine with radiation to the right leg for the last 3 days Denies any abnormal movements of the back, any weight lift or any trauma Denies any other symptoms associated with it and the condition seems to be a little bit better 08/22/2021 The patient was seen and examined in medical floor Her pain is little better but is still not yet ready to be discharged Awaiting PT evaluation Review of Systems Review of Systems: All systems reviewed and are unremarkable except as noted below Musculoskeletal: Lower back pain on the right side Physical Exam Physical Exam: Lying in bed comfortably Constitutional: well developed, well nourished and + well hydrated; not ill appearing Eyes: PERRL, conjunctivae normal, anicteric sclerae ENMT: external ear and nose normal, oropharynx normal Neck: trachea midline, no thyromegaly Respiratory: no respiratory distress Auscultation: lungs clear to auscultation bilaterally Cardiovascular: Rate/Rhythm: regular rate and regular rhythm; not tachycardic Heart Sounds: normal S1 and normal S2; no murmur Extremities: no edema Gastrointestinal (Abdomen): Inspection/Auscultation: normal bowel sounds; abdomen not distended Percussion/Palpation: abdomen soft; abdomen nontender No tenderness in the renal angles Musculoskeletal: No acute arthritis involving any joint. Minimal tender right lower paraspinal area Neurologic: normal touch/pain/proprioception and moves all extremities Psychiatric: A+Ox3, euthymic affect Lymphatic: no cervical or axillary lymphadenopathy Results & Data Results & Data ([facility]) Vital Signs (Past 12 Hours) Vital Signs Temp Pulse Resp BP Pulse Ox 08/22/21 16:02 36.7 C 70 20 107/71 96 08/22/21 07:23 36.6 C 60 18 118/80 97 Medications Administered Current Inpatient Medications Acetaminophen (Acetaminophen 325 Mg Tab) 650 mg PO Q4H PRN PRN Reason: pain/fever Stop: 09/19/21 22:06 Baclofen (Baclofen 10 Mg Tab) 5 mg PO TID [facility] Stop: 09/20/21 20:59 Last Admin: 08/22/21 14:34 Dose: 5 mg Documented by: Bupropion HCl (Bupropion Sr 150 Mg Tabcr) 150 mg PO DAILY [facility] Stop: 09/20/21 08:59 Last Admin: 08/22/21 08:59 Dose: 150 mg Documented by: Enoxaparin Sodium (Enoxaparin Inj 40 Mg/0.4 Ml Syr) 40 mg SQ QAM [facility] Stop: 09/21/21 08:59 Last Admin: 08/22/21 08:59 Dose: Not Given Documented by: Hydroxyzine HCl (Hydroxyzine Hcl 10 Mg Tab) 10 mg PO QID PRN PRN Reason: Anxiety Stop: 09/19/21 20:02 Acetaminophen (Ofirmev) 1,000 mg in 100 mls @ 400 mls/hr IV Q8H PRN PRN Reason: pain not relieved by po meds Stop: 08/23/21 20:00 Lorazepam 0.25 mg/ Syringe 0.25 mls @ 2 mls/min IV Q1H PRN PRN Reason: anxiety before/during mri Stop: 09/19/21 20:14 Last Admin: 08/20/21 23:57 Dose: 2 mls/min Documented by: Promethazine HCl 12.5 mg/ (Sodium Chloride) 50.5 mls @ 202 mls/hr IV Q6H PRN PRN Reason: Nausea And Vomiting Stop: 09/19/21 22:06 Last Infusion: 08/21/21 20:10 Dose: Infused Documented by: Lidocaine (Lidocaine 5% 1 Patch) 1 patch TD QAM [facility] Stop: 09/19/21 20:04 Last Admin: 08/22/21 09:00 Dose: 1 patch Documented by: Miscellaneous (Remove Lidoderm Patch) 1 ea N/A DAILY@2100 [facility] Stop: 09/20/21 07:59 Last Admin: 08/21/21 20:59 Dose: 1 ea Documented by: Miscellaneous (Remove Nicoderm Patch) 1 ea N/A DAILY@0859 [facility] Stop: 09/21/21 08:58 Last Admin: 08/22/21 08:59 Dose: 1 ea Documented by: Nicotine (Nicotine 21 Mg/24 Hr Tdsy) 21 mg TD QAM [facility] Stop: 09/20/21 21:09 Last Admin: 08/22/21 09:00 Dose: 21 mg Documented by: Ondansetron HCl (Ondansetron 4 Mg Od Tab) 4 mg PO Q6H PRN PRN Reason: Nausea Stop: 09/21/21 14:28 Last Admin: 08/22/21 14:36 Dose: 4 mg Documented by: Oxycodone HCl (Oxycodone Hcl Ir 5 Mg Tab (Immediate Release)) 5 mg PO Q4H PRN PRN Reason: Pain Stop: 09/03/21 20:00 Last Admin: 08/22/21 14:34 Dose: 5 mg Documented by: Pantoprazole Sodium (Pantoprazole 40 Mg Tab) 40 mg PO DAILY [facility] Stop: 09/20/21 08:59 Last Admin: 08/22/21 08:59 Dose: 40 mg Documented by: Sertraline HCl (Sertraline Hcl 100 Mg Tablet) 100 mg PO DAILY [facility] Stop: 09/20/21 08:59 Last Admin: 08/22/21 08:59 Dose: 100 mg Documented by: (1) Back pain Back pain laterality: unspecified Back pain location: low back pain Chronicity: acute Sciatica presence: unspecified whether sciatica present Qualified Code(s): M54.50 - Low back pain, unspecified
[2021-08-23] MEDS: oxyCODONE HCL IR 5 MG TAB (IMMEDIATE RELEASE) PO PRN ×2 (07:54→11:59)
[2021-08-23] MEDS: BACLOFEN 10 MG TAB PO SCH ×2 (07:55→14:00)
[2021-08-23] MEDS: ENOXAPARIN INJ 40 MG/0.4 ML SYR SQ SCH (07:55)
[2021-08-23] MEDS: LIDOCAINE 5% 1 PATCH TD SCH (07:56)
[2021-08-23] MEDS: SERTRALINE HCL 100 MG TABLET PO SCH (07:56)
[2021-08-23] MEDS: buPROPion SR 150 MG TABCR PO SCH (07:56)
[2021-08-23] MEDS: NICOTINE 21 MG/24 HR TDSY TD SCH (07:56)
[2021-08-23] MEDS: PANTOprazole 40 MG TAB PO SCH (07:56)
[2021-08-23] MEDS: ONDANSETRON 4 MG OD TAB PO PRN (08:43)
--- NOTE | 2021-08-23 11:57 | Hospitalist Progress Note ---
Date of Service August 23, 2021 Assessment & Plan (1) Back pain: Plan: With radiculopathy symptoms Sudden onset without trauma history Need to rule out tumor given history of left breast cancer status post surgery/chemotherapy/history of BRCA gene mutation Suboptimal/anxiety possibly contributing to symptoms History chronic pain/fibromyalgia History terminated medication use agreement as per records. MRI has been negative for any significant findings Appreciate Ortho input and recommended Will start muscle relaxant and PT and OT evaluation Pain is not yet reasonably controlled Pain is reasonably controlled Appreciate PT evaluation and recommendation She will be discharged home this afternoon with a walker Hypertension, elevated upon arrival at the ER secondary to discomfort Currently not on maintenance medications Portal vein thrombosis status post Coumadin Hypokalemia secondary to poor p.o. intake Hyperglycemia rule out DM-hemoglobin A1c is 5.8 ongoing tobacco abuse-strongly advised to quit smoking DVT prophylaxis. SCDs until MRI results known Lovenox 40 mg subcutaneous daily if no operative intervention contemplated-we will start from tomorrow if the patient is not being discharged Full code Admission and Anticipated Discharge Date Admission Date: August 22, 2021 Subjective 08/21/2021 The patient was seen and examined in medical floor She complains to have pain in the lower spine with radiation to the right leg for the last 3 days Denies any abnormal movements of the back, any weight lift or any trauma Denies any other symptoms associated with it and the condition seems to be a little bit better 08/22/2021 The patient was seen and examined in medical floor Her pain is little better but is still not yet ready to be discharged Awaiting PT evaluation 08/23/2021 The patient was seen and examined in medical floor She has been feeling much better today though still complains pain in the right side of lower spine Denies any problem with urine and or bowel habit Has had physical therapy and will be discharged home this afternoon Review of Systems Review of Systems: All systems reviewed and are unremarkable except as noted below Musculoskeletal: Lower back pain on the right side Physical Exam Physical Exam: Lying in bed comfortably Constitutional: well developed, well nourished and + well hydrated; not ill appearing Eyes: PERRL, conjunctivae normal, anicteric sclerae ENMT: external ear and nose normal, oropharynx normal Neck: trachea midline, no thyromegaly Respiratory: no respiratory distress Auscultation: lungs clear to auscultation bilaterally Cardiovascular: Rate/Rhythm: regular rate and regular rhythm; not tachycardic Heart Sounds: normal S1 and normal S2; no murmur Extremities: no edema Gastrointestinal (Abdomen): Inspection/Auscultation: normal bowel sounds; abdomen not distended Percussion/Palpation: abdomen soft; abdomen nontender Neurologic: normal touch/pain/proprioception and moves all extremities Psychiatric: A+Ox3, euthymic affect Lymphatic: no cervical or axillary lymphadenopathy Results & Data Results & Data ([facility]) Vital Signs (Past 12 Hours) Vital Signs Temp Pulse Resp BP Pulse Ox 08/23/21 06:01 36.6 C 71 18 132/85 95 Medications Administered Current Inpatient Medications Acetaminophen (Acetaminophen 325 Mg Tab) 650 mg PO Q4H PRN PRN Reason: pain/fever Stop: 09/19/21 22:06 Baclofen (Baclofen 10 Mg Tab) 5 mg PO TID [facility] Stop: 09/20/21 20:59 Last Admin: 08/23/21 07:55 Dose: 5 mg Documented by: Bupropion HCl (Bupropion Sr 150 Mg Tabcr) 150 mg PO DAILY [facility] Stop: 09/20/21 08:59 Last Admin: 08/23/21 07:56 Dose: 150 mg Documented by: Enoxaparin Sodium (Enoxaparin Inj 40 Mg/0.4 Ml Syr) 40 mg SQ QAM [facility] Stop: 09/21/21 08:59 Last Admin: 08/23/21 07:55 Dose: 40 mg Documented by: Hydroxyzine HCl (Hydroxyzine Hcl 10 Mg Tab) 10 mg PO QID PRN PRN Reason: Anxiety Stop: 09/19/21 20:02 Acetaminophen (Ofirmev) 1,000 mg in 100 mls @ 400 mls/hr IV Q8H PRN PRN Reason: pain not relieved by po meds Stop: 08/23/21 20:00 Lorazepam 0.25 mg/ Syringe 0.25 mls @ 2 mls/min IV Q1H PRN PRN Reason: anxiety before/during mri Stop: 09/19/21 20:14 Last Admin: 08/20/21 23:57 Dose: 2 mls/min Documented by: Promethazine HCl 12.5 mg/ (Sodium Chloride) 50.5 mls @ 202 mls/hr IV Q6H PRN PRN Reason: Nausea And Vomiting Stop: 09/19/21 22:06 Last Infusion: 08/21/21 20:10 Dose: Infused Documented by: Lidocaine (Lidocaine 5% 1 Patch) 1 patch TD QAM [facility] Stop: 09/19/21 20:04 Last Admin: 08/23/21 07:56 Dose: 1 patch Documented by: Giacomo (Remove Lidoderm Patch) 1 ea N/A DAILY@2100 [facility] Stop: 09/20/21 07:59 Last Admin: 08/22/21 22:02 Dose: 1 ea Documented by: Mikeaneous (Remove Nicoderm Patch) 1 ea N/A DAILY@0859 [facility] Stop: 09/21/21 08:58 Last Admin: 08/23/21 07:57 Dose: 1 ea Documented by: Nicotine (Nicotine 21 Mg/24 Hr Tdsy) 21 mg TD QAM [facility] Stop: 09/20/21 21:09 Last Admin: 08/23/21 07:56 Dose: 21 mg Documented by: Ondansetron HCl (Ondansetron 4 Mg Od Tab) 4 mg PO Q6H PRN PRN Reason: Nausea Stop: 09/21/21 14:28 Last Admin: 08/23/21 08:43 Dose: 4 mg Documented by: Oxycodone HCl (Oxycodone Hcl Ir 5 Mg Tab (Immediate Release)) 5 mg PO Q4H PRN PRN Reason: Pain Stop: 09/03/21 20:00 Last Admin: 08/23/21 07:54 Dose: 5 mg Documented by: Pantoprazole Sodium (Pantoprazole 40 Mg Tab) 40 mg PO DAILY [facility] Stop: 09/20/21 08:59 Last Admin: 08/23/21 07:56 Dose: 40 mg Documented by: Sertraline HCl (Sertraline Hcl 100 Mg Tablet) 100 mg PO DAILY [facility] Stop: 09/20/21 08:59 Last Admin: 08/23/21 07:56 Dose: 100 mg Documented by: (1) Back pain Back pain laterality: unspecified Back pain location: low back pain Chronicity: acute Sciatica presence: unspecified whether sciatica present Qualified Code(s): M54.50 - Low back pain, unspecified
--- NOTE | 2021-08-24 08:11 | Discharge Summary ---
Date of Service August 23, 2021 Admission HPI Per Admitting Provider History obtained from patient and records. Medical history significant for hypertension, left breast cancer status post surgery/chemotherapy, history of BRCA gene mutation, chronic pain/fibromyalgia, anxiety DSO/mood DSO/PTSD, history portal vein thrombosis status post Coumadin, ongoing tobacco abuse. Last confinement 2015 for back pain with right leg pain in the setting of Coumadin coagulopathy. 3 days ago, patient noted achy low back pain going to her abdomen with radiation more to the right lower extremity. Bilateral leg weakness more than the right. No incontinence. Fever. Some chills as per patient. No recollection of recent trauma. Some stressors at home. 2 weeks ago, patient noted abdominal pain attributed to anxiety/panic attack. Patient demanding for benzodiazepine medications upset that family doctor would not give into requests due to talk screen showing amphetamines as per documentation. Intractable discomfort at the ER. Decadron given at the ER. Medical History as above Surgical History : Breast capsulectomy, left mastectomy, breast prosthesis insertion, cholecystectomy, BTL, ENDER Family History : Breast cancer Personal/Social history : 1 pack daily, no EtOH intake, disabled Admission Exam Per Admitting Provider Physical Exam: GENERAL: uncomfortable anxious, obese, no respiratory distress SKIN: Normal color, warm HEENT: [place] palpebral conjunctivae, no ptosis, dry buccal mucosa NECK : Supple, short neck, no tenderness CHEST : CTA, no tenderness HEART : RRR, no obvious murmurs ABDOMEN: Some distention, nontender BACK : Low back tenderness, positive SLR bilateral EXTREMITIES : Minimal LE swelling, no LE tenderness, no other conspicuous deformities noted NEUROLOGIC : Coherent, no facial asymmetry, BUE 4/5, BLE 3/5, gait and stance not assessed Principal Diagnosis Severe back pain with spasm, history of portal vein thrombosis on Coumadin, hypertension Discharge Exam Lying in bed comfortably Constitutional well developed, well nourished and + well hydrated; not ill appearing Eyes PERRL, conjunctivae normal, anicteric sclerae ENMT external ear and nose normal, oropharynx normal Neck trachea midline, no thyromegaly Respiratory no respiratory distress Auscultation: lungs clear to auscultation bilaterally Cardiovascular Rate/Rhythm: regular rate and regular rhythm; not tachycardic Heart Sounds: normal S1 and normal S2; no murmur Extremities: no edema Gastrointestinal (Abdomen) Inspection/Auscultation: normal bowel sounds; abdomen not distended Percussion/Palpation: abdomen soft; abdomen nontender Neurologic normal touch/pain/proprioception and moves all extremities Psychiatric A+Ox3, euthymic affect Lymphatic no cervical or axillary lymphadenopathy Discharge Data Allergies Allergy/AdvReac Type Severity Reaction Status Date / Time latex Allergy Intermediate RASH Verified 08/20/21 17:52 adhesive Allergy Mild PAPER Verified 08/20/21 17:52 TAPE- RASH strawberry Allergy Mild RASH Verified 08/20/21 17:52 benzoin Allergy Unknown . Verified 08/20/21 17:52 calamine Allergy Unknown RASH Verified 08/20/21 17:52 Iodine and Iodide Containing Allergy Unknown "GNP Verified 08/20/21 17:52 Produc IODIDES DECOLORIZED" ketorolac Allergy Unknown rash, Verified 08/20/21 17:52 vomiting tramadol Allergy Unknown rash, Verified 08/20/21 17:52 vomiting acesulfame AdvReac Unknown Ulcers/sores Verified 08/20/21 17:52 on tongue. buprenorphine AdvReac Unknown Ulcers/sores Verified 12/07/20 17:13 on tongue. naloxone AdvReac Unknown Ulcers/sores Verified 12/07/20 17:13 on tongue. Consultations 08/20/21 19:09 ED Decision to Admit Stat 08/21/21 02:36 Consult Orthopedic Surgery Routine Ordered Studies 08/20/21 16:56 CT abd pelvis wo con Stat CT lumbar spine wo con Stat 08/21/21 00:20 MR lumbar spine wo/w con Stat Hospital Course (1) Back pain: With radiculopathy symptoms Sudden onset without trauma history Need to rule out tumor given history of left breast cancer status post surgery/chemotherapy/history of BRCA gene mutation Suboptimal/anxiety possibly contributing to symptoms History chronic pain/fibromyalgia History terminated medication use agreement as per records. MRI has been negative for any significant findings Appreciate Ortho input and recommended Will start muscle relaxant and PT and OT evaluation Pain is not yet reasonably controlled Pain is reasonably controlled Appreciate PT evaluation and recommendation She will be discharged home this afternoon with a walker Hypertension, elevated upon arrival at the ER secondary to discomfort Currently not on maintenance medications Portal vein thrombosis status post Coumadin Hypokalemia secondary to poor p.o. intake Hyperglycemia rule out DM-hemoglobin A1c is 5.8 ongoing tobacco abuse-strongly advised to quit smoking DVT prophylaxis. SCDs until MRI results known Lovenox 40 mg subcutaneous daily if no operative intervention contemplated-we will start from tomorrow if the patient is not being discharged Full code Total Time Total Time Spent Total Time Spent (In Minutes): 35 minutes Discharge Plan Discharge Items Patient Disposition: Home - Home Health Services Reason For Visit: BACK PAIN Discharge Diagnosis: Severe back pain with spasm, history of portal vein thrombosis on Coumadin, hypertension Condition on Discharge: Fair Activity: Resume your previous activity Activity Comment: Continue PT as an outpatient Non-emergency contact: Primary Care Provider Call non-emergency contact if: you have any medication questions and your symptoms worsen Follow-up/Referrals: Pamela Daley, DO [Outside Practitioners] - (Date & Time 08/29/2021 2:40 PM Provider Alvaro Mann MD [facility] ) Diet: Regular Addtl Attending Provider Instructions: Please take precautions to avoid falls Cautiously take narcotic pain medications to avoid increasing confusion, constipation and fall Please keep appointment with your healthcare provider Pending Studies at Discharge: No Stand-Alone Forms: [facility], Opioid Pain Management, Smoking Cessation Medications and DC Order Prescriptions: New baclofen 10 mg Tablet 5 mg PO TID Qty: 15 RF: 0 lidocaine 5 % Adhesive Patch,Medicated 1 patch transdermal QAM 30 Days Qty: 30 RF: 0 nicotine [Nicoderm CQ] 21 mg/24 hr Patch 24 Hour 21 mg transdermal QAM 30 Days Qty: 30 RF: 0 oxycodone 5 mg Tablet 5 mg PO Q4H PRN (Reason: pain) 5 Days Qty: 14 RF: 0 Continued bupropion HCl 150 mg tablet sustained-release 12 hr 150 mg PO DAILY RF: 0 ondansetron HCl 8 mg tablet 8 mg PO DAILY PRN (Reason: Nausea) RF: 0 sertraline 100 mg tablet 100 mg PO DAILY RF: 0 omeprazole 20 mg capsule,delayed release(DR/EC) 20 mg PO DAILY RF: 0 fluticasone propionate 50 mcg/actuation spray,suspension 1 - 2 spray INTRANASAL DAILY PRN (Reason: Nasal Congestion) RF: 0 Discharge Orders: Discharge Order (Routine); Ordered 08/23/21 Ordered By: Gerber Coleman Admission Data Admit Date/Time: 08/22/21 16:38 Attending Provider: Gerber Coleman Admit Provider: Buddy Zepeda Primary Care Provider: PCP,NO Other Providers: Buddy Zepeda ; Nick Cox ; [facility] Other Interventions: Discharge Summary Assessment (RN) Last Done: 08/23/21 15:34
[2021-08-26 07:56] LABS: Codeine Urine NEGATIVE ng/mL (<50); Hydrocodone Urine NEGATIVE ng/mL (<50); Hydromor Urine NEGATIVE ng/mL (<50); MDA negative; MDEA negative; MDMA (Ecstasy) Urine, Confirm negative; Morphine Urine 1170 ng/mL (<50); Norhydrocodone Conf Ur NEGATIVE ng/mL (<50); Noroxycodone Urine 235 ng/mL (<50); Oxycodone Urine 113 ng/mL (<50); Oxymorph Urine NEGATIVE ng/mL (<50)
== END 2021-08-23 17:01 | disposition home health service (06) ==
LOC: 3E 14:01 → ED 14:01 → 3E 21:42

== ENCOUNTER 2022-09-11 21:34 | Observation (INO) ==
[2022-09-11 22:21] LABS: Basophils # (auto) 0.05 K/uL (0-0.2); Basophils % (auto) 0.5 %; Eosinophils % (auto) 0.9 %; Hematocrit (blood only) 37.3 % (37.0-47.0); Hemoglobin 12.7 g/dl (12.0-16.0); Immature Granulocytes # (auto) 0.04 K/uL (0.01-0.20); Immature Granulocytes % (auto) 0.4 %; Lymphocytes # (auto) 2.67 K/uL (1.2-3.4); Lymphocytes % (auto) 25.1 %; Mean Corpuscular Hemoglobin 30.2 pg (25.0-34.0); Mean Corpuscular Volume 88.6 fL (80.0-100.0); Mean Platelet Volume 9.6 fL (9.4-12.4); Monocytes # (auto) 0.86 K/uL (0.11-0.59); Monocytes % (auto) 8.1 %; Neutrophils # (auto) 6.91 K/uL (1.40-6.50); Platelet Count 314 K/uL (130-400); RDW Coefficient of Variation 12.8 % (11.5-14.5); RDW Standard Deviation 41.6 fL (36.4-46.3); Red Blood Count 4.21 M/uL (4.20-5.40); White Blood Count 10.63 K/ul (4.8-10.8)
[2022-09-11 22:55] LABS: Anion Gap 8 (3-11); Bilirubin,Total 0.3 mg/dl (0.2-1.0); Calcium 9.3 mg/dl (8.6-10.3); Carbon Dioxide 27 mmol/L (21-32); Chloride 103 mmol/L (98-107); Potassium 3.4 mmol/L (3.5-5.1); Sodium 138 mmol/L (136-145)
[2022-09-11] MEDS ORDERED: dexAMETHasone**PF** 10 MG/ML VIAL IV ONE (22:55)
[2022-09-11] MEDS ORDERED: ACETAMINOPHEN 1,000 MG/100 ML VIAL IV STA (22:55)
[2022-09-11 23:01] LABS: Alanine Aminotransferase 7 U/L (7-52); Albumin Globulin Ratio 1.3 (0.9-2); Alkaline Phosphatase 70 U/L (34-104); Aspartate Aminotransferase 12 U/L (13-39); BUN Creatinine Ratio 12.1 (10-20); Blood Urea Nitrogen 11 mg/dl (6-23); Est GFR (African American) 84.7 ml/min; Est GFR (Non-African American) 73.1 ml/min; Globulin 3.2 gm/dl (2.5-4.0); Glucose 95 mg/dl (70-99(Fasting)); Total Protein 7.2 gm/dl (6.0-8.3)
--- NOTE | 2022-09-11 23:04 | Emergency Department Note ---
History of Present Illness General Chief complaint: Back Injury/Pain Stated complaint: BACK PAIN, SIATICA PAIN X3 DAYS Time Seen by Provider: 09/11/22 22:47 History of Present Illness Maximum Pain Intensity: 8 This 51-year-old female with a history of sciatica presents the ER complaining of worsening severe low back pain radiating down her right leg. Patient states she is having difficulty walking on the leg. Patient denies loss of bowel bladder control, saddle anesthesia, fever, chills, IV drug abuse. Home Medications Medication Instructions Recorded Confirmed Type bupropion HCl 150 mg tablet,12 hr 150 mg PO DAILY 08/20/21 08/20/21 History sustained-release fluticasone propionate 50 1 - 2 spray intranasal DAILY PRN 08/20/21 08/20/21 History mcg/actuation nasal Nasal Congestion spray,suspension omeprazole 20 mg capsule,delayed 20 mg PO DAILY 08/20/21 08/20/21 History release ondansetron HCl 8 mg tablet 8 mg PO DAILY PRN Nausea 08/20/21 08/20/21 History sertraline 100 mg tablet 100 mg PO DAILY 08/20/21 08/20/21 History baclofen 10 mg tablet 5 mg PO TID #15 tabs 08/23/21 Rx Allergies Allergy/AdvReac Type Severity Reaction Status Date / Time latex Allergy Intermediate RASH Verified 08/20/21 17:52 adhesive Allergy Mild PAPER Verified 08/20/21 17:52 TAPE- RASH strawberry Allergy Mild RASH Verified 08/20/21 17:52 benzoin Allergy Unknown . Verified 08/20/21 17:52 calamine Allergy Unknown RASH Verified 08/20/21 17:52 iodine Allergy Unknown Unknown Verified 02/06/22 19:40 ketorolac Allergy Unknown rash, Verified 08/20/21 17:52 vomiting tramadol Allergy Unknown rash, Verified 08/20/21 17:52 vomiting acesulfame AdvReac Unknown Ulcers/sores Verified 08/20/21 17:52 on tongue. buprenorphine AdvReac Unknown Ulcers/sores Verified 12/07/20 17:13 on tongue. naloxone AdvReac Unknown Ulcers/sores Verified 12/07/20 17:13 on tongue. Past Med/Surg History Medical History GERD (gastroesophageal reflux disease) HTN (hypertension) PTSD (post-traumatic stress disorder) Surgical History H/O: hysterectomy History of cholecystectomy History of mastectomy History of tubal ligation No pertinent past surgical history Social History Smoking Status: Current every day smoker Tobacco Type: Cigarettes Cigarettes Per Day: 20; Second Hand Exposure: No; Do You Dip or Chew Tobacco: No; Hx Alcohol Use: No Hx Substance Use: No Preferred Language: Bengali Communication Ability: Effective Wool Hat Flanger Required: No Beliefs That Will Affect Care: None Current Living Situation: Alone Feels Safe at Home: Yes Assistive Devices: None Review of Systems A total of 10 systems reviewed and were otherwise negative Physical Exam Vital Signs Vital Signs - 24 hr 09/11/22 21:41 09/12/22 01:42 09/12/22 02:00 Temperature 36.8 C Temperature Source Temporal Artery Scan Pulse Rate 100 H Pulse Rate [Apical] 78 74 Pulse Rhythm [Apical] Regular Pulse Strength [Apical] Normal Respiratory Rate 18 18 18 Respiratory Effort / Characteristics Non-Labored Non-Labored Respiratory Depth Normal Respiratory Pattern Regular Blood Pressure 111/72 Blood Pressure [Right Arm] 111/71 122/77 Blood Pressure Mean 85 Blood Pressure Mean [Right Arm] 84 92 Blood Pressure Position [Right Arm] Lying Pulse Oximetry 97 95 95 Oxygen Delivery Method Room Air Room Air Room Air Sepsis Recent Fever Within 48 Hours No Sepsis New/Unexplained Change in Mental Status No Sepsis Action Taken by Nursing No Action Required VITALS: Vitals are noted on the nurse's note and reviewed by myself. Vital signs stable. GENERAL: White female, in no acute distress, nondiaphoretic, well-developed w ell-nourished. SKIN: The skin was without rashes, erythema, edema, or bruising. There is no tenting of the skin. Capillary reflex less than 2 seconds. HEAD: Normocephalic atraumatic. EARS: External auditory canals clear, EYES: Pupils equal round and reactive to light and accommodation. Conjunctivae without injection, sclerae without icterus. Extraocular movements intact. NOSE: Patent, turbinates without inflammation or discharge MOUTH: Mucous membranes moist. Pharynx without erythema or exudate. Uvula midline. Airway patent. Tongue does not deviate. NECK: Supple without nuchal rigidity. No lymphadenopathy. No thyromegaly. Cervical spine is nontender. No JVD. HEART: Regular rate and rhythm LUNGS: Clear to auscultation bilaterally without wheezes, rales or rhonchi. No retractions or accessory muscle use. ABDOMEN: Positive bowel sounds x 4. Normal tympanic percussion. Soft, nontender, without masses or organomegaly. Handy sign negative. No guarding or rebound tenderness. No CVA tenderness MUSCULOSKELETAL: No muscle atrophy, erythema, or edema noted. No thoracic or lumbar tenderness. Positive straight leg raise on the right. Negative on the left. Patient can plantarflex and dorsiflex NEURO: Patient was alert and oriented to person place and time. Normal sensation to light and sharp touch. No focal neurological deficits. Course Administered Medications Discontinued Medications Dexamethasone Sodium Phosphate (DexamethasonePf 10 Mg/Ml Vial) 10 mg IV NOW ONE Stop: 09/11/22 22:56 Last Admin: 09/11/22 23:20 Dose: Not Given Documented By: ARDEN Acetaminophen (Ofirmev) 1,000 mg in 100 mls @ 400 mls/hr IV NOW STA Stop: 09/11/22 23:09 Last Admin: 09/11/22 23:20 Dose: Not Given Documented By: ARDEN Lorazepam (Lorazepam 2 Mg/1 Ml Vial) 1 mg IV NOW STA Stop: 09/12/22 01:46 Last Admin: 09/12/22 02:00 Dose: 1 mg Documented By: KIRIT Morphine Sulfate (Morphine Sulfate 4 Mg/Ml 1 Ml Carp\Vial) 4 mg IV NOW STA Stop: 09/11/22 23:34 Last Admin: 09/11/22 23:44 Dose: 4 mg Documented By: JADEN Morphine Sulfate (Morphine Sulfate 4 Mg/Ml 1 Ml Carp\Vial) 4 mg IV NOW STA Stop: 09/12/22 01:46 Last Admin: 09/12/22 02:01 Dose: 4 mg Documented By: KIRIT Medical Decision Making Medical Records Attestation: I reviewed the patient's medical records. Home Medications Current Medication List: was personally reviewed by me Laboratory Data Attestation: I reviewed the patient's lab results. 09/11/22 21:50 09/11/22 21:50 Lab Results 09/11/22 09/11/22 09/11/22 Range/Units 21:50 21:50 21:50 WBC 10.63 (4.8-10.8) K/ul RBC 4.21 (4.20-5.40) M/uL Hgb 12.7 (12.0-16.0) g/dl Hct 37.3 (37.0-47.0) % MCV 88.6 (80.0-100.0) fL MCH 30.2 (25.0-34.0) pg MCHC 34.0 (32.0-36.0) g/dL RDW Std Deviation 41.6 (36.4-46.3) fL RDW Coeff of Caitlin 12.8 (11.5-14.5) % Plt Count 314 (130-400) K/uL MPV 9.6 (9.4-12.4) fL Immature Gran % (Auto) 0.4 % Neut % (Auto) 65.0 % Lymph % (Auto) 25.1 % Upson % (Auto) 8.1 % Eos % (Auto) 0.9 % Baso % (Auto) 0.5 % Neut # (Auto) 6.91 H (1.40-6.50) K/uL Lymph # (Auto) 2.67 (1.2-3.4) K/uL Upson # (Auto) 0.86 H (0.11-0.59) K/uL Eos # (Auto) 0.10 (0-0.50) K/uL Baso # (Auto) 0.05 (0-0.2) K/uL Immature Gran # (Auto) 0.04 (0.01-0.20) K/uL Sodium 138 (136-145) mmol/L Potassium 3.4 L (3.5-5.1) mmol/L Chloride 103 (98-107) mmol/L Carbon Dioxide 27 (21-32) mmol/L Anion Gap 8 (3-11) BUN 11 (6-23) mg/dl Creatinine 0.91 (0.6-1.2) mg/dl Est Cr Clr Drug Dosing Not Reportable Est GFR ( Amer) 84.7 ml/min Est GFR (Non-Af Amer) 73.1 ml/min BUN/Creatinine Ratio 12.1 (10-20) Glucose 95 (70-99(Fasting)) mg/dl Calcium 9.3 (8.6-10.3) mg/dl Magnesium 1.4 L (1.7-2.4) mg/dl Total Bilirubin 0.3 (0.2-1.0) mg/dl AST 12 L (13-39) U/L ALT 7 (7-52) U/L Alkaline Phosphatase 70 (34-104) U/L Total Creatine Kinase 45 (26-192) U/L Total Protein 7.2 (6.0-8.3) gm/dl Albumin 4.0 (3.4-5.0) gm/dl Globulin 3.2 (2.5-4.0) gm/dl Albumin/Globulin Ratio 1.3 (0.9-2) TSH 1.083 (0.300-4.500) uIu/ml Imaging Data Attestation: I personally reviewed and interpreted this imaging study as follows: MDM Narrative Prior records/ancillary studies reviewed. Triage Nursing notes reviewed. Additional history obtained from nurse. The patient's history was concerning for back pain. Differential diagnosis: Etiologies such as musculoskeletal, disc herniation, fracture, aortic disease, metastatic disease, cord compression, discitis, infection, renal colic, gastrointestinal, acute exacerbation of chronic back pain, sciatica, cauda equina, as well as others were entertained. Physical findings: As above. No focal neurologic findings noted. ER treatment provided: Decadron and Tylenol were ordered On reassessment the patient felt better. Diagnostics interpreted by me: The labs Independently Interpreted by myself revealed no worrisome leukocytosis, stable H&H Imaging studies: Patient was unable to tolerate the MRI Consultation: A consultation was placed with hospitalist. The case was discussed and diagnostics were reviewed. They will evaluate for possible admission This appears to be consistent with Intractable low back pain. Patient received multiple rounds of pain meds. She still in severe amount of pain. She was unable to tolerate the MRI. Medicine was consulted and the case was discussed. She will be evaluated for possible admission by the admission team. Labs were independently interpreted by myself. By the evaluation outlined above emergent etiologies such as fracture, aortic disease, metastatic disease, infection, renal colic, gastrointestinal, cord compression, cauda equina, as well as others were deemed relatively unlikely. The pt informed about the findings as listed above. All questions were answered and pleased with the treatment. The chart was completed utilizing [employer] Speech voice recognition software. Grammatical errors, random word insertions, pronoun errors, and incomplete sentences are an occassional consequence of this system due to software limitations, ambient noise, and hardware issues. Any formal questions or concerns about the content, text, or information contained within the body of this dictation should be directly addressed to the physician research assistant member for clarification. Impression & Plan Lumbar radiculopathy Discharge Plan Visit Data Chief Complaint: Back Injury/Pain Stated Complaint: BACK PAIN, SIATICA PAIN X3 DAYS ED Provider: Marci Ramirez ED Midlevel Provider: Princess Tapia Discharge Problem: Lumbar radiculopathy Patient Disposition: Being Evaluated by Hospitalist Condition: Good Forms Stand Alone Forms: [facility] [place] Prescriptions Prescriptions: No Action bupropion HCl 150 mg tablet sustained-release 12 hr 150 mg PO DAILY ondansetron HCl 8 mg tablet 8 mg PO DAILY PRN (Reason: Nausea) sertraline 100 mg tablet 100 mg PO DAILY omeprazole 20 mg capsule,delayed release(DR/EC) 20 mg PO DAILY fluticasone propionate 50 mcg/actuation spray,suspension 1 - 2 spray INTRANASAL DAILY PRN (Reason: Nasal Congestion) baclofen 10 mg Tablet 5 mg PO TID Qty: 15 0RF Referrals Referrals: PCP,NO [Physician] -
[2022-09-11 23:08] LABS: Magnesium 1.4 mg/dl (1.7-2.4)
[2022-09-11 23:13] LABS: Creatine Kinase 45 U/L (26-192)
[2022-09-11] MEDS ORDERED: MoRPHine SULFATE 4 MG/ML 1 ML CARP\\VIAL IV STA (23:33)
[2022-09-12] MEDS ORDERED: LORazepam 2 MG/1 ML VIAL IV STA (01:45)
[2022-09-12] MEDS ORDERED: MoRPHine SULFATE 4 MG/ML 1 ML CARP\\VIAL IV STA (01:45)
[2022-09-12] MEDS ORDERED: HYDROmorphone INJ 0.5 MG/0.5 ML SYR IV STA (03:23)
[2022-09-12 04:26] LABS: Appearance Urine Turbid (Clear); Bacteria Urine Automated 1+ (Negative); Blood Urine Negative (Negative); Color Urine Dark Yellow; Epithelial Cell Urine Auto >30 /lpf (0-5); Glucose Urine UA Negative (Negative); Ketones Urine Trace (Negative); Leukocyte Esterase Urine 1+ (Negative); Nitrite Urine Negative (Negative); Protein Urine Trace (Negative); Specific Gravity Urine 1.025 (1.000-1.030); Urobilinogen Urine Negative (Negative)
[2022-09-12 04:37] LABS: Bilirubin Urine 1+ (Negative)
[2022-09-12 04:46] LABS: Cast Urine Automated 0 /lpf (0-5); Mucus Urine Present (None Prsent); RBC Urine Automated 0-4 /hpf (0-4)
--- NOTE | 2022-09-12 04:47 | History & Physical Report ---
Date of Service September 12, 2022 Assessment & Plan (1) Back pain: Plan: 51-year-old female with past med significant for hypertension left breast cancer status post surgery/chemotherapy, history of BRCA gene mutation, chronic pain/fibromyalgia, anxiety DSO/mood DSO/PTSD, history portal vein thrombosis status post Coumadin, tobacco abuse presents with severe back pain radiating to right leg started a couple days ago. Severe back pain Radiating down the right leg Cannot do MRI scan of the ER Pain control PT OT Ortho consult in a.m. Chronic pain fibromyalgia anxiety PTSD Continue home bupropion and sertraline Hypertension Seems not on any medications We will monitor DVT prophylaxis Lovenox Disposition observation medical floor Full code History of Present Illness Chief Complaint: Severe back pain Primary Care Provider: Jf Palm MD 51-year-old female with past med significant for hypertension left breast cancer status post surgery/chemotherapy, history of BRCA gene mutation, chronic pain/fibromyalgia, anxiety DSO/mood DSO/PTSD, history portal vein thrombosis status post Coumadin, tobacco abuse presents with severe back pain radiating to right leg started a couple days ago. States pain is very severe. She is limping on the left leg to ambulate. Denies any fevers. No bowel or bladder incontinence. No numbness. No weakness. No headache or dizziness. No blurred visions. No runny nose or sore throat or cough. No chest pain or shortness of breath. Normal bowel and bladder movements. Past medical history as mentioned above Past surgical history breast capsulectomy periprosthetic, left complete removal of breast, laparoscopic cholecystectomy, ligation of oviducts, total hysterectomy Social history smokes 1 pack a day. No alcohol use. History of heroin abuse as per records. Family history no family stent file Allergies Allergy/AdvReac Type Severity Reaction Status Date / Time latex Allergy Intermediate RASH Verified 08/20/21 17:52 adhesive Allergy Mild PAPER Verified 08/20/21 17:52 TAPE- RASH strawberry Allergy Mild RASH Verified 08/20/21 17:52 benzoin Allergy Unknown . Verified 08/20/21 17:52 calamine Allergy Unknown RASH Verified 08/20/21 17:52 iodine Allergy Unknown Unknown Verified 02/06/22 19:40 ketorolac Allergy Unknown rash, Verified 08/20/21 17:52 vomiting tramadol Allergy Unknown rash, Verified 08/20/21 17:52 vomiting acesulfame AdvReac Unknown Ulcers/sores Verified 08/20/21 17:52 on tongue. buprenorphine AdvReac Unknown Ulcers/sores Verified 12/07/20 17:13 on tongue. naloxone AdvReac Unknown Ulcers/sores Verified 12/07/20 17:13 on tongue. Home Medications Medication Instructions Recorded Confirmed Type albuterol sulfate 90 mcg/actuation 2 puff inhalation Q6H PRN 09/12/22 09/12/22 History aerosol inhaler Shortness Of Breath Or Wheezing bupropion HCl 150 mg tablet,12 hr 150 mg PO BID 09/12/22 09/12/22 History sustained-release cyanocobalamin (vitamin B-12) 1,000 mcg PO DAILY 09/12/22 09/12/22 History 1,000 mcg tablet gabapentin 300 mg capsule 300 mg PO TID 09/12/22 09/12/22 History omeprazole 20 mg capsule,delayed 20 mg PO DAILY 09/12/22 09/12/22 History release sertraline 100 mg tablet 100 mg PO DAILY 09/12/22 09/12/22 History Past Med/Surg History Medical History GERD (gastroesophageal reflux disease) HTN (hypertension) PTSD (post-traumatic stress disorder) Surgical History H/O: hysterectomy History of cholecystectomy History of mastectomy History of tubal ligation No pertinent past surgical history Social History Smoking Status: Current every day smoker Tobacco Type: Cigarettes Cigarettes Per Day: 20; Second Hand Exposure: No; Do You Dip or Chew Tobacco: No; Hx Alcohol Use: No Hx Substance Use: No Preferred Language: Nicaraguan Communication Ability: Effective Plug Wirer Required: No Beliefs That Will Affect Care: None Current Living Situation: Alone Feels Safe at Home: Yes Assistive Devices: None Review of Systems Review of Systems: All systems reviewed & are unremarkable except as noted in Subjective Physical Exam Physical Exam: General- Not in distress Head- atraumatic Eyes- PERRL ENT- oropharynx clear Neck- supple, no JVD, Lungs- clear to auscultation and percussion Heart- regular rate and rhythm; no murmur, no gallop, Abdomen- normal bowel sounds, soft, nontender, no distension Extremities- no pretibial edema, no erythema, painful right lower extremity movements Neuro- alert, oriented x 3; PERRL, no facial palsy; no dysarthria;moves extremities Musculoskeletal bilateral straight leg test positive Skin- warm & dry Results & Data Results & Data Vital Signs (Past 12 Hours) Vital Signs Temp Pulse Pulse Resp BP BP Pulse Ox 09/12/22 04:11 73 15 108/73 96 09/12/22 02:00 74 18 122/77 95 09/12/22 01:42 78 18 111/71 95 09/11/22 21:41 36.8 C 100 H 18 111/72 97 O2 Del Method 09/12/22 04:11 09/12/22 02:00 Room Air 09/12/22 01:42 Room Air 09/11/22 21:41 Room Air Diagnostic Findings Laboratory Results WBC 10.63 K/ul (4.8-10.8) 09/11/22 21:50 RBC 4.21 M/uL (4.20-5.40) 09/11/22 21:50 Hgb 12.7 g/dl (12.0-16.0) 09/11/22 21:50 Hct 37.3 % (37.0-47.0) 09/11/22 21:50 MCV 88.6 fL (80.0-100.0) 09/11/22 21:50 MCH 30.2 pg (25.0-34.0) 09/11/22 21:50 MCHC 34.0 g/dL (32.0-36.0) 09/11/22 21:50 RDW Std Deviation 41.6 fL (36.4-46.3) 09/11/22 21:50 RDW Coeff of Caitlin 12.8 % (11.5-14.5) 09/11/22 21:50 Plt Count 314 K/uL (130-400) 09/11/22 21:50 MPV 9.6 fL (9.4-12.4) 09/11/22 21:50 Immature Gran % (Auto) 0.4 % 09/11/22 21:50 Neut % (Auto) 65.0 % 09/11/22 21:50 Lymph % (Auto) 25.1 % 09/11/22 21:50 Linn % (Auto) 8.1 % 09/11/22 21:50 Eos % (Auto) 0.9 % 09/11/22 21:50 Baso % (Auto) 0.5 % 09/11/22 21:50 Neut # (Auto) 6.91 K/uL (1.40-6.50) H 09/11/22 21:50 Lymph # (Auto) 2.67 K/uL (1.2-3.4) 09/11/22 21:50 Linn # (Auto) 0.86 K/uL (0.11-0.59) H 09/11/22 21:50 Eos # (Auto) 0.10 K/uL (0-0.50) 09/11/22 21:50 Baso # (Auto) 0.05 K/uL (0-0.2) 09/11/22 21:50 Immature Gran # (Auto) 0.04 K/uL (0.01-0.20) 09/11/22 21:50 Sodium 138 mmol/L (136-145) 09/11/22 21:50 Potassium 3.4 mmol/L (3.5-5.1) L 09/11/22 21:50 Chloride 103 mmol/L (98-107) 09/11/22 21:50 Carbon Dioxide 27 mmol/L (21-32) 09/11/22 21:50 Anion Gap 8 (3-11) 09/11/22 21:50 BUN 11 mg/dl (6-23) 09/11/22 21:50 Creatinine 0.91 mg/dl (0.6-1.2) 09/11/22 21:50 Est Cr Clr Drug Dosing Not Reportable 09/11/22 21:50 Est GFR ( Amer) 84.7 ml/min 09/11/22 21:50 Est GFR (Non-Af Amer) 73.1 ml/min 09/11/22 21:50 BUN/Creatinine Ratio 12.1 (10-20) 09/11/22 21:50 Glucose 95 mg/dl (70-99(Fasting)) 09/11/22 21:50 Calcium 9.3 mg/dl (8.6-10.3) 09/11/22 21:50 Magnesium 1.4 mg/dl (1.7-2.4) L 09/11/22 21:50 Total Bilirubin 0.3 mg/dl (0.2-1.0) 09/11/22 21:50 AST 12 U/L (13-39) L 09/11/22 21:50 ALT 7 U/L (7-52) 09/11/22 21:50 Alkaline Phosphatase 70 U/L (34-104) 09/11/22 21:50 Total Creatine Kinase 45 U/L (26-192) 09/11/22 21:50 Total Protein 7.2 gm/dl (6.0-8.3) 09/11/22 21:50 Albumin 4.0 gm/dl (3.4-5.0) 09/11/22 21:50 Globulin 3.2 gm/dl (2.5-4.0) 09/11/22 21:50 Albumin/Globulin Ratio 1.3 (0.9-2) 09/11/22 21:50 TSH 1.083 uIu/ml (0.300-4.500) 09/11/22 21:50 Urine Color Dark Yellow 09/12/22 04:08 Urine Appearance Turbid (Clear) A 09/12/22 04:08 Urine pH 6.0 (4.5-7.5) 09/12/22 04:08 Ur Specific [place] 1.025 (1.000-1.030) 09/12/22 04:08 Urine Protein Trace (Negative) H 09/12/22 04:08 Urine Glucose (UA) Negative (Negative) 09/12/22 04:08 Urine Ketones Trace (Negative) H 09/12/22 04:08 Urine Blood Negative (Negative) 09/12/22 04:08 Urine Nitrite Negative (Negative) 09/12/22 04:08 Urine Bilirubin 1+ (Negative) H 09/12/22 04:08 Urine Urobilinogen Negative (Negative) 09/12/22 04:08 Ur Leukocyte Esterase 1+ (Negative) H 09/12/22 04:08 Code Status & VTE Plan VTE Prophylaxis Plan VTE Prophylaxis will be ordered: Yes (1) Back pain Back pain laterality: unspecified Back pain location: low back pain Chronicity: acute Sciatica presence: unspecified whether sciatica present Qualified Code(s): M54.50 - Low back pain, unspecified
[2022-09-12] MEDS ORDERED: ACETAMINOPHEN 325 MG TAB PO PRN (06:14)
[2022-09-12] MEDS ORDERED: POLYETHYLENE (MIRALAX) 17 GM PACK PO PRN (06:14)
[2022-09-12] MEDS ORDERED: ALBUTEROL HFA 8 GM INHALER INH PRN (06:14)
[2022-09-12] MEDS: HYDROmorphone INJ 1 MG/ML SYRINGE IV PRN ×4 (08:34→21:15)
[2022-09-12] MEDS: ENOXAPARIN INJ 40 MG/0.4 ML SYR SQ SCH (08:37)
[2022-09-12] MEDS: GABAPENTIN 300 MG CAP PO SCH ×3 (08:39→21:15)
[2022-09-12] MEDS: PANTOprazole 40 MG TAB PO SCH (08:39)
[2022-09-12] MEDS: SERTRALINE HCL 100 MG TABLET PO SCH (08:40)
[2022-09-12] MEDS: buPROPion SR 150 MG TABCR PO SCH ×2 (08:40→21:15)
[2022-09-12] MEDS: CYANOCOBALAMIN (B-12) 500 MCG TABLET PO SCH (08:41)
[2022-09-12 08:50] LABS: BUN Creatinine Ratio 17.4 (10-20); Creatinine Clr Calc Pharmacy 73.4 ml/min; Est GFR (African American) 90.7 ml/min; Est GFR (Non-African American) 78.2 ml/min; Magnesium 1.4 mg/dl (1.7-2.4); Potassium 3.3 mmol/L (3.5-5.1)
[2022-09-12 09:00] LABS: Hemoglobin 11.9 g/dl (12.0-16.0); Mean Corpuscular Hemoglobin 30.2 pg (25.0-34.0); Mean Corpuscular Volume 88.8 fL (80.0-100.0); Mean Platelet Volume 9.8 fL (9.4-12.4); Platelet Count 294 K/uL (130-400); RDW Coefficient of Variation 12.6 % (11.5-14.5); RDW Standard Deviation 40.8 fL (36.4-46.3); Red Blood Count 3.94 M/uL (4.20-5.40); White Blood Count 11.56 K/ul (4.8-10.8)
[2022-09-12] MEDS ORDERED: POTASSIUM CHLORIDE CRTAB 20 MEQ TABCR PO STA (09:18)
[2022-09-12 09:50] LABS: Basophils # (auto) 0.05 K/uL (0-0.2); Basophils % (auto) 0.4 %; Eosinophils # (auto) 0.14 K/uL (0-0.50); Eosinophils % (auto) 1.2 %; Immature Granulocytes # (auto) 0.15 K/uL (0.01-0.20); Immature Granulocytes % (auto) 1.3 %; Lymphocytes # (auto) 4.31 K/uL (1.2-3.4); Lymphocytes % (auto) 37.3 %; Monocytes # (auto) 1.06 K/uL (0.11-0.59); Monocytes % (auto) 9.2 %; Neutrophils # (auto) 5.85 K/uL (1.40-6.50); Neutrophils % (auto) 50.6 %
[2022-09-12] MEDS: cefTRIAXone SODIUM 2,000 MG in DEXTROSE 5% 50 ML IV SCH (11:59)
[2022-09-12] MEDS: MAGNESIUM SULFATE / D5W 1 GM/100 ML BAG IV SCH ×2 (12:00→14:15)
--- NOTE | 2022-09-12 13:25 | Orthopedic Consultation ---
Date of Consultation September 12, 2022 Assessment & Plan (1) Lumbar radiculopathy: Patient presents with an admixture of chronic low back pain and more acute right radiculopathy I reviewed an MRI from 2021 which is relatively benign. I believe she needs to undergo an updated MRI to see if there is any new pathology. We will go ahead and order this and will follow up once the MRI is complete to formulate a more complete care plan. History of Present Illness Attending Physician: Jordi Lopez MD History of Present Illness Patient is a 51-year-old female with history significant for chronic low back pain. Her pain worsened approximately 1 year ago. About 7 days ago she started with the onset of increasing back pain. She presented to the emergency room after the pain started going down the right leg all the way to the foot. The pain is uncontrolled. She was unable to obtain an MRI as she was too uncomfortable to lie flat. She has had multiple rounds of narcotics as well as steroids. She has a history significant for DVT and is now on Lovenox. She states that the leg pain has settled down to a degree and most of the pain is now just in the right buttock and proximal thigh. She denies any ekta weakness in the legs she denies any change in bladder or bowel function. Allergies Allergy/AdvReac Type Severity Reaction Status Date / Time latex Allergy Intermediate RASH Verified 08/20/21 17:52 adhesive Allergy Mild PAPER Verified 08/20/21 17:52 TAPE- RASH strawberry Allergy Mild RASH Verified 08/20/21 17:52 benzoin Allergy Unknown . Verified 08/20/21 17:52 calamine Allergy Unknown RASH Verified 08/20/21 17:52 iodine Allergy Unknown Unknown Verified 02/06/22 19:40 ketorolac Allergy Unknown rash, Verified 08/20/21 17:52 vomiting tramadol Allergy Unknown rash, Verified 08/20/21 17:52 vomiting acesulfame AdvReac Unknown Ulcers/sores Verified 08/20/21 17:52 on tongue. buprenorphine AdvReac Unknown Ulcers/sores Verified 12/07/20 17:13 on tongue. naloxone AdvReac Unknown Ulcers/sores Verified 12/07/20 17:13 on tongue. Home Medications Medication Instructions Recorded Confirmed Type albuterol sulfate 90 mcg/actuation 2 puff inhalation Q6H PRN 09/12/22 09/12/22 History aerosol inhaler Shortness Of Breath Or Wheezing bupropion HCl 150 mg tablet,12 hr 150 mg PO BID 09/12/22 09/12/22 History sustained-release cyanocobalamin (vitamin B-12) 1,000 mcg PO DAILY 09/12/22 09/12/22 History 1,000 mcg tablet gabapentin 300 mg capsule 300 mg PO TID 09/12/22 09/12/22 History omeprazole 20 mg capsule,delayed 20 mg PO DAILY 09/12/22 09/12/22 History release sertraline 100 mg tablet 100 mg PO DAILY 09/12/22 09/12/22 History Patient History Medical History GERD (gastroesophageal reflux disease) HTN (hypertension) PTSD (post-traumatic stress disorder) Surgical History H/O: hysterectomy History of cholecystectomy History of mastectomy History of tubal ligation No pertinent past surgical history Social History Smoking Status: Current every day smoker Tobacco Type: Cigarettes Cigarettes Per Day: 20; Second Hand Exposure: No; Do You Dip or Chew Tobacco: No; Tobacco Cessation Education Requested by Patient: No Hx Alcohol Use: No Hx Substance Use: No Preferred Language: Sammarinese Communication Ability: Effective 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 She is a bit of a poor historian. Her lower extremity motor exam reveals no focal atrophy or strength 5 out of 5 to detailed muscle testing without exception. Sensations intact to light touch proprioception is also intact. She has full range of motion of the hips and knees. Her calves are supple nontender abdomen soft and nontender visual ramirez are grossly intact. Cardiovascular exam reveals no gross abnormalities Results & Data Vital Signs (Past 12 Hours) Vital Signs Temp Pulse Resp BP Pulse Ox O2 Del Method 09/12/22 11:02 84 20 114/72 93 Room Air 07/28/23 08:44 37.0 C 84 20 117/68 96 Room Air 09/12/22 06:00 68 16 98 09/12/22 04:11 73 15 108/73 96 09/12/22 02:00 74 18 122/77 95 Room Air 09/12/22 01:42 78 18 111/71 95 Room Air
--- NOTE | 2022-09-12 15:27 | Hospitalist Progress Note ---
Date of Service September 12, 2022 Assessment & Plan (1) Lumbar radiculopathy: Plan 51-year-old female with PMH of HTN, left breast cancer s/p surgery/chemotherapy, BRCA gene mutation, chronic pain/fibromyalgia, anxiety/mood disorder/PTSD, portal vein thrombosis status post Coumadin, tobacco abuse presented to the ED 09/11 with complaint of severe low back pain radiating to right lower extremity starting a couple of days ago [employer], denies febrile illness or bowel or bladder incontinence. She is being managed for the following: Severe low back pain/lumbar radiculopathy: Started few days ago [employer], radiating down to right leg associated with burning sensation. Pain management, orthospine consult, MRI lumbar spine pending. PT/OT. Acute UTI: UA suggestive of UTI, follow culture. Continue with Rocephin 09/12. Chronic pain fibromyalgia anxiety PTSD: Continue home bupropion and sertraline High blood pressure, likely secondary to pain, continue to monitor. DVT prophylaxis Lovenox Disposition observation medical floor Full code Admission and Anticipated Discharge Date Admission Date: September 12, 2022 Subjective Patient came in with severe low back pain associated with radiating right lower extremity pain with burning. Patient was lying semiupright in bed, on room air, NAD, reports minimally improved pain, reports burning sensation and pain down the right lower extremity from low back. Denies any febrile illness or any bladder or bladder incontinence. Reports eating okay and moving bowels okay. Denies other review of symptoms. Physical Exam Physical Exam: GENERAL: Alert and oriented x3. NAD, on RA. Obese class II HEENT: No pallor, no icterus. Pupils equal, round and reactive to light. Oral mucosa moist. NECK: No JVD, no neck masses. HEART: S1 and S2 heard. Regular rate and rhythm. No murmur, no gallop. RESPIRATORY SYSTEM: Normal AP diameter. No accessory muscle use. No wheezing, no crackles. ABDOMEN: Soft, bowel sounds present, nontender, no distention. CENTRAL NERVOUS SYSTEM: No facial droop. Speech is clear. Obeys simple commands. Moves extremities. EXTREMITIES: No edema, no erythema seen. BLE SLR T+ Results & Data Results & Data Vital Signs (Past 12 Hours) Vital Signs Temp Pulse Pulse Resp BP BP Pulse Ox 09/12/22 14:50 88 11 L 92 09/12/22 14:43 94 09/12/22 14:43 101/71 09/12/22 14:42 93 09/12/22 14:10 87 15 94 09/12/22 14:00 93 H 15 93 09/12/22 13:50 87 17 94 09/12/22 13:40 85 17 96 09/12/22 13:30 84 15 99 09/12/22 13:20 88 18 97 09/12/22 13:10 89 20 94 09/12/22 13:00 89 18 98 09/12/22 12:50 91 H 19 09/12/22 12:40 90 20 09/12/22 12:30 89 24 09/12/22 12:20 85 21 09/12/22 12:10 92 H 19 09/12/22 12:08 87 21 09/12/22 11:02 84 20 114/72 93 09/12/22 08:44 37.0 C 84 20 117/68 96 09/12/22 06:00 68 16 98 09/12/22 04:11 73 15 108/73 96 O2 Del Method 09/12/22 14:50 09/12/22 14:43 09/12/22 14:43 09/12/22 14:42 09/12/22 14:10 09/12/22 14:00 09/12/22 13:50 09/12/22 13:40 09/12/22 13:30 09/12/22 13:20 09/12/22 13:10 09/12/22 13:00 09/12/22 12:50 09/12/22 12:40 09/12/22 12:30 09/12/22 12:20 09/12/22 12:10 09/12/22 12:08 09/12/22 11:02 Room Air 09/12/22 08:44 Room Air 09/12/22 06:00 09/12/22 04:11
[2022-09-13] MEDS: HYDROmorphone INJ 1 MG/ML SYRINGE IV PRN ×4 (01:22→23:17)
[2022-09-13] MEDS: ENOXAPARIN INJ 40 MG/0.4 ML SYR SQ SCH (06:34)
[2022-09-13] MEDS: ONDANSETRON INJ 2 MG/ML 2 ML VIAL IV PRN (07:54)
[2022-09-13] MEDS: GABAPENTIN 300 MG CAP PO SCH ×3 (08:16→21:07)
[2022-09-13] MEDS: SERTRALINE HCL 100 MG TABLET PO SCH (08:16)
[2022-09-13] MEDS: CYANOCOBALAMIN (B-12) 500 MCG TABLET PO SCH (08:17)
[2022-09-13] MEDS: PANTOprazole 40 MG TAB PO SCH (08:17)
[2022-09-13] MEDS: buPROPion SR 150 MG TABCR PO SCH ×2 (08:17→21:06)
[2022-09-13] MEDS: cefTRIAXone SODIUM 2,000 MG in DEXTROSE 5% 50 ML IV SCH (08:23)
[2022-09-13] MEDS ORDERED: ACETAMINOPHEN 325 MG TAB PO PRN (09:02)
[2022-09-13] MEDS: NAPROXEN 250 MG TAB PO SCH ×3 (09:57→21:09)
[2022-09-13] MEDS: ACETAMINOPHEN 325 MG TAB PO SCH ×2 (09:57→17:11)
[2022-09-13 10:16] LABS: Hematocrit (blood only) 34.8 % (37.0-47.0); Hemoglobin 11.7 g/dl (12.0-16.0); Mean Corpuscular Hemoglobin 29.8 pg (25.0-34.0); Mean Corpuscular Hgb Conc 33.6 g/dL (32.0-36.0); Mean Corpuscular Volume 88.8 fL (80.0-100.0); Mean Platelet Volume 9.9 fL (9.4-12.4); Platelet Count 289 K/uL (130-400); RDW Coefficient of Variation 12.5 % (11.5-14.5); RDW Standard Deviation 40.5 fL (36.4-46.3); Red Blood Count 3.92 M/uL (4.20-5.40); White Blood Count 8.76 K/ul (4.8-10.8)
[2022-09-13] MEDS ORDERED: LORazepam 2 MG/1 ML VIAL IV ONE ×2 (10:22→11:45)
[2022-09-13 10:35] LABS: BUN Creatinine Ratio 19.2 (10-20); Calcium 9.1 mg/dl (8.6-10.3); Creatinine Clr Calc Pharmacy 88.5 ml/min; Est GFR (African American) 110.5 ml/min; Est GFR (Non-African American) 95.4 ml/min; Magnesium 1.6 mg/dl (1.7-2.4); Phosphorus 4.4 mg/dl (2.5-4.9); Potassium 3.5 mmol/L (3.5-5.1)
--- NOTE | 2022-09-13 17:05 | Hospitalist Progress Note ---
Date of Service September 13, 2022 Assessment & Plan (1) Lumbar radiculopathy: Plan 51-year-old female with PMH of HTN, left breast cancer s/p surgery/chemotherapy, BRCA gene mutation, chronic pain/fibromyalgia, anxiety/mood disorder/PTSD, portal vein thrombosis status post Coumadin, tobacco abuse presented to the ED 09/11 with complaint of severe low back pain radiating to right lower extremity starting a couple of days ago [employer], denies febrile illness or bowel or bladder incontinence. She is being managed for the following: Severe low back pain/lumbar radiculopathy: Started few days ago [employer], radiating down to right leg associated with burning sensation. Pain management, orthospine consult, MRI lumbar spine pending/pt declined going to mri despite 1 mg iv ativan today; but was noted to be lethargic with. PT/OT. Likely will get pain mx if not improving and if ok w/ orthospine, pt can get OP MRI/open MRI as she states she has claustrophobia. Acute UTI: UA suggestive of UTI, follow culture. Continue with Rocephin 09/12. Chronic pain fibromyalgia anxiety PTSD: Continue home bupropion and sertraline High blood pressure, likely secondary to pain, continue to monitor. DVT prophylaxis Lovenox Disposition: observation medical floor Full code Admission and Anticipated Discharge Date Admission Date: September 13, 2022 Subjective Patient came in with severe low back pain associated with radiating right lower extremity pain with burning. Patient was lying semiupright in bed, on room air, NAD, reports minimally improved pain, reports burning sensation and pain down the right lower extremity from low back. Denies any febrile illness or any bladder or bladder incontinence. Reports eating okay and moving bowels okay. Denies other review of symptoms. Physical Exam Physical Exam: GENERAL: Alert and oriented x3. NAD, on RA. Obese class II HEENT: No pallor, no icterus. Pupils equal, round and reactive to light. Oral mucosa moist. NECK: No JVD, no neck masses. HEART: S1 and S2 heard. Regular rate and rhythm. No murmur, no gallop. RESPIRATORY SYSTEM: Normal AP diameter. No accessory muscle use. No wheezing, no crackles. ABDOMEN: Soft, bowel sounds present, nontender, no distention. CENTRAL NERVOUS SYSTEM: No facial droop. Speech is clear. Obeys simple commands. Moves extremities. EXTREMITIES: No edema, no erythema seen. RLE SLR T+ Results & Data Results & Data Vital Signs (Past 12 Hours) Vital Signs Temp Pulse Pulse Resp BP Pulse Ox O2 Del Method 09/13/22 14:53 36.6 C 88 16 110/60 95 Room Air 09/13/22 10:25 88 16 101/62 09/13/22 08:07 36.6 C 71 16 87/58 L 92 Room Air 09/13/22 07:00 Room Air
[2022-09-13] MEDS: MAGNESIUM OXIDE 400 MG TAB PO SCH (21:07)
[2022-09-14] MEDS: ACETAMINOPHEN 325 MG TAB PO SCH ×3 (00:47→16:00)
[2022-09-14] MEDS: ONDANSETRON INJ 2 MG/ML 2 ML VIAL IV PRN ×4 (01:18→22:29)
[2022-09-14] MEDS: ENOXAPARIN INJ 40 MG/0.4 ML SYR SQ SCH (05:27)
[2022-09-14] MEDS: HYDROmorphone INJ 1 MG/ML SYRINGE IV PRN ×4 (05:28→23:37)
[2022-09-14 06:23] LABS: Hematocrit (blood only) 33.8 % (37.0-47.0); Hemoglobin 11.4 g/dl (12.0-16.0); Mean Corpuscular Hemoglobin 29.8 pg (25.0-34.0); Mean Corpuscular Hgb Conc 33.7 g/dL (32.0-36.0); Mean Corpuscular Volume 88.5 fL (80.0-100.0); Mean Platelet Volume 9.5 fL (9.4-12.4); Platelet Count 273 K/uL (130-400); RDW Coefficient of Variation 12.5 % (11.5-14.5); RDW Standard Deviation 40.6 fL (36.4-46.3); Red Blood Count 3.82 M/uL (4.20-5.40); White Blood Count 10.95 K/ul (4.8-10.8)
[2022-09-14 06:41] LABS: BUN Creatinine Ratio 23.8 (10-20); Creatinine Clr Calc Pharmacy 102.5 ml/min; Est GFR (African American) 120.4 ml/min; Est GFR (Non-African American) 103.9 ml/min; Magnesium 1.4 mg/dl (1.7-2.4); Phosphorus 4.1 mg/dl (2.5-4.9); Potassium 3.8 mmol/L (3.5-5.1)
[2022-09-14] MEDS: MAGNESIUM OXIDE 400 MG TAB PO SCH ×2 (08:25→22:16)
[2022-09-14] MEDS: GABAPENTIN 300 MG CAP PO SCH ×3 (08:25→22:19)
[2022-09-14] MEDS: PANTOprazole 40 MG TAB PO SCH (08:26)
[2022-09-14] MEDS: buPROPion SR 150 MG TABCR PO SCH ×2 (08:26→22:18)
[2022-09-14] MEDS: SERTRALINE HCL 100 MG TABLET PO SCH (08:26)
[2022-09-14] MEDS: CYANOCOBALAMIN (B-12) 500 MCG TABLET PO SCH (08:26)
[2022-09-14] MEDS: NAPROXEN 250 MG TAB PO SCH ×3 (08:27→22:11)
[2022-09-14] MEDS: cefTRIAXone SODIUM 2,000 MG in DEXTROSE 5% 50 ML IV SCH (08:54)
[2022-09-14] MEDS: MAGNESIUM SULFATE / D5W 1 GM/100 ML BAG IV SCH ×2 (09:23→10:37)
--- NOTE | 2022-09-14 15:29 | Hospitalist Progress Note ---
Date of Service September 14, 2022 Assessment & Plan (1) Lumbar radiculopathy: Plan 51-year-old female with PMH of HTN, left breast cancer s/p surgery/chemotherapy, BRCA gene mutation, chronic pain/fibromyalgia, anxiety/mood disorder/PTSD, portal vein thrombosis status post Coumadin, tobacco abuse presented to the ED 09/11 with complaint of severe low back pain radiating to right lower extremity starting a couple of days ago [employer], denies febrile illness or bowel or bladder incontinence. She is being managed for the following: Severe low back pain/lumbar radiculopathy: Started few days ago [employer], radiating down to right leg associated with burning sensation. Pain management, orthospine consult, MRI lumbar spine pending/pt declined going to mri despite Ativan use -wants to opt for outpatient open MRI; pain management consult placed. PT/OT. Likely will get pain mx as not improving per patient and if ok w/ orthospine, pt can get OP MRI/open MRI as she states she has claustrophobia. Acute UTI: UA suggestive of UTI, follow culture. Continue with Rocephin 09/12. Chronic pain fibromyalgia anxiety PTSD: Continue home bupropion and sertraline High blood pressure, likely secondary to pain at presentation. Resolved. DVT prophylaxis Lovenox Disposition: PT/OT, CM to assist with DC planning. Full code Admission and Anticipated Discharge Date Admission Date: September 13, 2022 Subjective Patient came in with severe low back pain associated with radiating right lower extremity pain with burning. Patient was lying in bed, on room air, NAD, reports minimally improved pain, reports eating okay and moving bowels okay. Denies any febrile illness or any bladder or bladder incontinence. Denies other review of symptoms. Per RN, patient has been moving around independently. Patient did not tolerate 2 attempts at MRI despite being given Ativan. Patient would like to opt for outpatient open MRI. Physical Exam Physical Exam: GENERAL: Alert and oriented x3. NAD, on RA. Obese class II HEENT: No pallor, no icterus. Pupils equal, round and reactive to light. Oral mucosa moist. NECK: No JVD, no neck masses. HEART: S1 and S2 heard. Regular rate and rhythm. No murmur, no gallop. RESPIRATORY SYSTEM: Normal AP diameter. No accessory muscle use. No wheezing, no crackles. ABDOMEN: Soft, bowel sounds present, nontender, no distention. CENTRAL NERVOUS SYSTEM: No facial droop. Speech is clear. Obeys simple commands. Moves extremities. EXTREMITIES: No edema, no erythema seen. RLE SLR T+ Results & Data Results & Data Vital Signs (Past 12 Hours) Vital Signs Temp Pulse Resp BP Pulse Ox O2 Del Method 09/14/22 14:35 36.5 C 85 16 119/79 97 Room Air 09/14/22 07:08 36.9 C 74 16 90/60 L 95 Room Air
[2022-09-15] MEDS: ACETAMINOPHEN 325 MG TAB PO SCH ×3 (00:37→15:33)
[2022-09-15] MEDS: ENOXAPARIN INJ 40 MG/0.4 ML SYR SQ SCH (05:42)
[2022-09-15] MEDS: HYDROmorphone INJ 1 MG/ML SYRINGE IV PRN ×2 (05:42→11:54)
[2022-09-15] MEDS: buPROPion SR 150 MG TABCR PO SCH ×2 (08:15→21:07)
[2022-09-15] MEDS: CYANOCOBALAMIN (B-12) 500 MCG TABLET PO SCH (08:15)
[2022-09-15] MEDS: GABAPENTIN 300 MG CAP PO SCH ×3 (08:15→21:08)
[2022-09-15] MEDS: ONDANSETRON INJ 2 MG/ML 2 ML VIAL IV PRN (08:16)
[2022-09-15] MEDS: SERTRALINE HCL 100 MG TABLET PO SCH (08:16)
[2022-09-15] MEDS: NAPROXEN 250 MG TAB PO SCH ×3 (08:16→21:08)
[2022-09-15] MEDS: MAGNESIUM OXIDE 400 MG TAB PO SCH (08:16)
[2022-09-15] MEDS: PANTOprazole 40 MG TAB PO SCH (08:16)
[2022-09-15] MEDS: cefTRIAXone SODIUM 2,000 MG in DEXTROSE 5% 50 ML IV SCH (09:15)
[2022-09-15] MEDS: MAGNESIUM SULFATE / D5W 1 GM/100 ML BAG IV SCH ×3 (10:23→14:15)
--- NOTE | 2022-09-15 11:45 | Pain Management Consultation ---
Date of Consultation September 15, 2022 Assessment & Plan (1) Back pain: Back pain laterality: unspecified Back pain location: low back pain Chronicity: acute Sciatica presence: unspecified whether sciatica present Qualified Code(s): M54.50 - Low back pain, unspecified (2) Lumbar radiculopathy: Plan 1. Recommend starting oxycodone 5 mg Q6H. 2. Recommend starting gabapentin 300 mg TID. 3. Continue acetaminophen as prescribed. 4. Discontinue IV Dilaudid as soon as able. 5. Consider methylprednisolone taper - start 24 mg/day (6 tabs x4 mg) x 3 days, then taper down by 4 mg (1 tab) every 3 days. 6. Consider orthotics consult, inpatient vs. outpatient, to address a potential mild leg length discrepancy, approximately 1/4 inch short on the left. 7. Patient mentioned that she may be willing to try to undergo the lumbar spine MRI again while inpatient, stating that she felt the Ativan was given too far ahead of starting the MRI study yesterday, as she fell asleep soon after it was administered, and then it did not last long enough to get started with the MRI. * Ultimately, depending on the results of the MRI, the patient may benefit from lumbar ERICK, which can be facilitated as an outpatient with the pain clinic. Thank you for this consultation. Pain management service will sign off at this time. Please reconsult if needed. History of Present Illness Reason for Consultation: Low back and right leg pain Attending Physician: Jordi Lopez MD History of Present Illness Per ER physician note on 09/11/2022: "This 51-year-old female with a history of sciatica presents the ER complaining of worsening severe low back pain radiating down her right leg. Patient states she is having difficulty walking on the leg. Patient denies loss of bowel bladder control, saddle anesthesia, fever, chills, IV drug abuse." Patient was treated with Decadron and Tylenol, and after reassessment once the medications were allowed to take effect, the patient was feeling better. A consultation to the hospitalist was placed, and they evaluated the patient. After multiple rounds of pain medicines, the patient remained in severe pain and was unable to tolerate undergoing an MRI. The patient was eventually admitted for further work-up and pain management. Per hospitalist H&P note on 09/04/2022: "51-year-old female with past med significant for hypertension left breast cancer status post surgery/chemotherapy, history of BRCA gene mutation, chronic pain/fibromyalgia, anxiety DSO/mood DSO/PTSD, history portal vein thrombosis status post Coumadin, tobacco abuse presents with severe back pain radiating to right leg started a couple days ago. States pain is very severe. She is limping on the left leg to ambulate. Denies any fevers. No bowel or bladder incontinence. No numbness. No weakness. No headache or dizziness. No blurred visions. No runny nose or sore throat or cough. No chest pain or shortness of breath. Normal bowel and bladder movements." Orthopedics has seen the patient and determined that the patient was having pain that worsened about 1 year ago. Approximately 7 days ago, she started having increasing low back pain. The right leg pain that she was having had settled down to where pain has now regressed to the right buttock and proximal posterior thigh. Orthopedics recommended an updated MRI of the lumbar spine to check for new pathology, as the MRI from 2021 was relatively benign. The patient was unable to go through with the MRI, even after administration of Ativan. However, the patient stated that she felt the Ativan was given too soon, and she fell asleep soon after it was administered. Patient tells me this morning that she is willing to try to undergo an MRI again. She was saying that her pain was in the mid to right lower back and radiated into the buttocks and posterior thigh to the level of the knee. Patient was denying any radiation distal to that. Patient denied left lower extremity involvement. Case discussed with Dr. Manriquez. Pain Assessment Full Body Front + Back: 1. 2. Allergies Allergy/AdvReac Type Severity Reaction Status Date / Time latex Allergy Intermediate RASH Verified 08/20/21 17:52 adhesive Allergy Mild PAPER Verified 08/20/21 17:52 TAPE- RASH strawberry Allergy Mild RASH Verified 08/20/21 17:52 benzoin Allergy Unknown . Verified 08/20/21 17:52 calamine Allergy Unknown RASH Verified 08/20/21 17:52 iodine Allergy Unknown Unknown Verified 02/06/22 19:40 ketorolac Allergy Unknown rash, Verified 08/20/21 17:52 vomiting tramadol Allergy Unknown rash, Verified 08/20/21 17:52 vomiting acesulfame AdvReac Unknown Ulcers/sores Verified 08/20/21 17:52 on tongue. buprenorphine AdvReac Unknown Ulcers/sores Verified 12/07/20 17:13 on tongue. naloxone AdvReac Unknown Ulcers/sores Verified 12/07/20 17:13 on tongue. Home Medications Medication Instructions Recorded Confirmed Type albuterol sulfate 90 mcg/actuation 2 puff inhalation Q6H PRN 09/12/22 09/12/22 History aerosol inhaler Shortness Of Breath Or Wheezing bupropion HCl 150 mg tablet,12 hr 150 mg PO BID 09/12/22 09/12/22 History sustained-release cyanocobalamin (vitamin B-12) 1,000 mcg PO DAILY 09/12/22 09/12/22 History 1,000 mcg tablet gabapentin 300 mg capsule 300 mg PO TID 09/12/22 09/12/22 History omeprazole 20 mg capsule,delayed 20 mg PO DAILY 09/12/22 09/12/22 History release sertraline 100 mg tablet 100 mg PO DAILY 09/12/22 09/12/22 History Patient History Medical History GERD (gastroesophageal reflux disease) HTN (hypertension) PTSD (post-traumatic stress disorder) Surgical History H/O: hysterectomy History of cholecystectomy History of mastectomy History of tubal ligation No pertinent past surgical history Social History Smoking Status: Current every day smoker Tobacco Type: Cigarettes Cigarettes Per Day: 1 pack; Second Hand Exposure: No; Do You Dip or Chew Tobacco: No; Tobacco Cessation Education Requested by Patient: No Hx Alcohol Use: No Hx Substance Use: No Preferred Language: Polish Communication Ability: Effective 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 Mood and affect is appropriate. Does not appear in acute distress. Able to easily sit up to the edge of the bed and go from sit to stand without difficulty. HEAD: Normocephalic; atraumatic. NECK: Full ROM; trachea is midline. CHEST: Regular chest respiration and excursion. EXTREMITIES: Full ROM. No TTP. Distal sensation and pulses intact bilaterally. BACK: Diminished ROM. Positive lumbosacral tenderness.Inspection/palpation de monstrates some loss of the normal lumbar lordotic curvature. NEURO: CN II-XII grossly intact with no focal deficits noted. Awake, alert, and oriented x 3. Distal sensation of lower legs intact. Patellar Reflex R 1+L 1+ Achilles Reflex R 1+L 1+ Negative clonus bilaterally SKIN: No lesions, erythema, or rashes noted. LOWER EXTREMITIES: Negative straight leg raise bilaterally. R Hip flexion 5/5; hip extension 5/5; knee extension 4/5; knee flexion 5/5; ankle dorsiflexion 5/5; ankle plantar flexion 5/5; EHL 5/5 L Hip flexion 5/5; hip extension 5/5; knee extension 5/5; knee flexion 5/5; ankle dorsiflexion 5/5; ankle plantar flexion 5/5; EHL 5/5 Pelvis appears level at the iliac crest when standing. Question ~1/4" short to left leg when measured supine at the medial malleoli. Results (Pain Clinic) Diagnostic Review MRI Findings: MRI OF THE LUMBAR SPINE COMBO CLINICAL HISTORY: Low back pain. Lower extremity weakness. COMPARISON STUDY: CT scan of the lumbar spine dated 08/20/2021. TECHNIQUE: MRI of the lumbar spine is performed utilizing various T1 and T2- weighted sequences in the axial and sagittal planes. Contrast-enhanced sequences are acquired following the IV administration of 8.5 cc of Gadavist. FINDINGS: Lumbar spine: Vertebral body height and alignment are maintained throughout the lumbar spine. Normal marrow signal intensity is preserved throughout the visualized bony structures. The transverse and spinous processes appear intact. There is no evidence of spondylolysis. No definite enhancing or destructive bony lesion is seen. Intervertebral discs: There is moderate degenerative disc desiccation. The disc spaces are maintained. Spinal cord: The visualized spinal cord is normal in morphology and signal intensity. The conus medullaris terminates at the level of L2. The nerve roots of the cauda equina are normal in morphology. No abnormal postcontrast enhancement is identified. L1-L2: Unremarkable. L2-L3: Unremarkable. L3-L4: Unremarkable. L4-L5: Mild facet arthropathy is of no consequence. The central canal and neural foramina are patent. L5-S1: There is minimal posterior disc bulge. The central canal and neural foramina are patent. Facet arthropathy is of no consequence. Sacrum: The visualized sacrum is normal in morphology and signal intensity. Soft tissues: The paraspinous soft tissues are within normal limits. The retroperitoneal structures are grossly unremarkable but incompletely evaluated. IMPRESSION: 1. There is no disc herniation, central canal stenosis, or neural foraminal narrowing seen throughout the lumbar spine. 2. No destructive bony process is identified. Dictated: 08/21/2021 8:52 AM Transcribed: 08/21/2021 9:00 AM Isi [id number] [email or web address] Electronically signed by: Lance Marcelo M.D. 08/21/2021 9:09 AM Dictated:08/21/21 [id number] Transcribed: 08/21/21 0900
[2022-09-15] MEDS ORDERED: GADOBUTROL 65ML VIAL IV ONE (17:16)
[2022-09-15] MEDS ORDERED: oxyCODONE HCL IR 5 MG TAB (IMMEDIATE RELEASE) PO PRN (17:24)
--- NOTE | 2022-09-15 17:24 | Hospitalist Progress Note ---
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 Pain management, orthospine consult, MRI lumbar spine pending/pt declined going to mri despite Ativan use -wants to opt for outpatient open MRI --> today wants inpatient MRI and wants Valium prior to MRI; pain management evaluated, appreciate recommendation 09/15. PT/OT. Hopefully she is able to get MRI today so that orthospine can evaluate and possibly we can plan on her discharge. Acute UTI: UA suggestive of UTI. Continue with Rocephin 09/12. Chronic pain fibromyalgia anxiety PTSD: Continue home bupropion and sertraline High blood pressure, likely secondary to pain at presentation. Resolved. DVT prophylaxis Lovenox Disposition: PT/OT, CM to assist with DC planning. Full code Admission and Anticipated Discharge Date Admission Date: September 13, 2022 Subjective Patient came in with severe low back pain associated with radiating right lower extremity pain with burning. Patient was lying in bed, on room air, NAD, reports some improved pain, reports eating okay and moving bowels okay. Denies any febrile illness or any bladder or bladder incontinence. Denies other review of symptoms. Per RN, patient has been moving around independently. PT OT has evaluated, appreciate recommendation. Now patient would like to get MRI while inpatient, and would like Valium as she has used Valium in the past prior to MRI. Physical Exam Physical Exam: GENERAL: Alert and oriented x3. NAD, on RA. Obese class II HEENT: No pallor, no icterus. Pupils equal, round and reactive to light. Oral mucosa moist. NECK: No JVD, no neck masses. HEART: S1 and S2 heard. Regular rate and rhythm. No murmur, no gallop. RESPIRATORY SYSTEM: Normal AP diameter. No accessory muscle use. No wheezing, no crackles. ABDOMEN: Soft, bowel sounds present, nontender, no distention. CENTRAL NERVOUS SYSTEM: No facial droop. Speech is clear. Obeys simple commands. Moves extremities. EXTREMITIES: No edema, no erythema seen. RLE SLR T+ Results & Data Results & Data Vital Signs (Past 12 Hours) Vital Signs Temp Pulse Resp BP Pulse Ox O2 Del Method 09/15/22 15:17 36.7 C 86 16 111/77 97 Room Air 09/15/22 08:15 Room Air 09/15/22 07:17 36.8 C 81 14 107/77 96 Room Air
--- NOTE | 2022-09-15 20:34 | Magnetic Resonance Report ---
MRI OF THE LUMBAR SPINE COMBO CLINICAL HISTORY: Chronic low back pain. Sciatica. COMPARISON STUDY: MRI of the lumbar spine dated 08/21/2021. CT of the lumbar spine dated 08/20/2021. TECHNIQUE: MRI of the lumbar spine is performed utilizing various T1 and T2-weighted sequences in the axial and sagittal planes. Contrast-enhanced sequences are acquired following the IV administration of 8.5 cc of Gadavist. FINDINGS: Lumbar spine: Vertebral body height and alignment are maintained throughout the lumbar spine. Normal marrow signal intensity is preserved throughout the visualized bony structures. The transverse and sp inous processes appear intact. There is no evidence of spondylolysis. No destructive bony lesion is s een. Intervertebral disks: There is minimal disc desiccation. The disc spaces are maintained. Spinal cord: The visualized spinal cord is normal in morphology and signal intensity. The conus medul john terminates at the L1-L2 interspace. No abnormal postcontrast enhancement is seen. The nerve rodri ts of the cauda equina are normal in morphology. L1-L2: Unremarkable. L2-L3: Unremarkable. L3-L4: Unremarkable. L4-L5: Mild facet arthropathy is of no consequence. The central canal and neural foramina are patent. L5-S1: There is minimal central posterior disc protrusion with annular fissure. The central canal is clear. Facet arthropathy is of no consequence. The neural foramina are patent. Sacrum: The visualized sacrum is normal in morphology and signal intensity. Soft tissues: The paraspinous soft tissues are normal as visualized. The retroperitoneal structures a re grossly unremarkable but incompletely assessed. IMPRESSION: 1. There is no disc herniation, central canal stenosis, or neural foraminal narrowing seen throughout the lumbar spine. 2. See above discussion for detailed level by level analysis. 3. No destructive bony process is seen. 4. There is no abnormal postcontrast enhancement. Dictated: 09/15/2022 7:33 PM Transcribed: 09/15/2022 7:52 PM Cruz [id number] [place] [id number] Electronically signed by: Lance Marcelo M.D. 09/15/2022 8:31 PM
[2022-09-15] MEDS ORDERED: oxyCODONE HCL IR 5 MG TAB (IMMEDIATE RELEASE) PO STA (21:14)
[2022-09-16] MEDS: ACETAMINOPHEN 325 MG TAB PO SCH ×2 (00:35→08:13)
[2022-09-16] MEDS: oxyCODONE HCL IR 5 MG TAB (IMMEDIATE RELEASE) PO PRN ×2 (00:35→08:10)
[2022-09-16] MEDS: ONDANSETRON INJ 2 MG/ML 2 ML VIAL IV PRN ×2 (04:03→10:04)
[2022-09-16] MEDS: ENOXAPARIN INJ 40 MG/0.4 ML SYR SQ SCH (05:46)
[2022-09-16 06:06] LABS: Hemoglobin 12.6 g/dl (12.0-16.0); Mean Corpuscular Hemoglobin 30.1 pg (25.0-34.0); Mean Corpuscular Hgb Conc 34.1 g/dL (32.0-36.0); Mean Corpuscular Volume 88.3 fL (80.0-100.0); Mean Platelet Volume 9.5 fL (9.4-12.4); Platelet Count 284 K/uL (130-400); RDW Coefficient of Variation 12.5 % (11.5-14.5); RDW Standard Deviation 40.6 fL (36.4-46.3); Red Blood Count 4.19 M/uL (4.20-5.40); White Blood Count 10.28 K/ul (4.8-10.8)
[2022-09-16 06:29] LABS: BUN Creatinine Ratio 21.2 (10-20); Calcium 9.5 mg/dl (8.6-10.3); Creatinine Clr Calc Pharmacy 97.8 ml/min; Est GFR (African American) 118.5 ml/min; Est GFR (Non-African American) 102.3 ml/min; Magnesium 1.7 mg/dl (1.7-2.4); Phosphorus 4.8 mg/dl (2.5-4.9); Potassium 4.2 mmol/L (3.5-5.1)
[2022-09-16] MEDS ORDERED: methylPREDNISolone 4 MG TAB PO SCH (08:00)
[2022-09-16] MEDS: PANTOprazole 40 MG TAB PO SCH (08:11)
[2022-09-16] MEDS: SERTRALINE HCL 100 MG TABLET PO SCH (08:11)
[2022-09-16] MEDS: GABAPENTIN 300 MG CAP PO SCH (08:12)
[2022-09-16] MEDS: buPROPion SR 150 MG TABCR PO SCH (08:12)
[2022-09-16] MEDS: CYANOCOBALAMIN (B-12) 500 MCG TABLET PO SCH (08:13)
[2022-09-16] MEDS: NAPROXEN 250 MG TAB PO SCH (08:14)
[2022-09-16] MEDS: cefTRIAXone SODIUM 2,000 MG in DEXTROSE 5% 50 ML IV SCH (09:13)
--- NOTE | 2022-09-16 11:07 | Discharge Summary ---
Discharge Summary Date of Service September 16, 2022 Notes For Next Care Provider Patient admitted for R sided back pain that was radicular in nature. MRI of lumbar spine was negative. Placed on Methylprednisone taper. Medication Changes From Visit Please take methylprednisolone taper as prescribed * 6 tablets for 2 days; 5 tablets for 3 days; 4 tablets for 3 days; 3 tablets for 3 days; 2 tablets for 3 days and 1 tablet for 3 days then stop * Do not take any other anti inflammatories while taking methylprednisolone - this includes naproxen, ibuprofen, advil, motrin, aleve Recommend taking tylenol 500mg three times a day while still having pain Oxycodone 5mg every 8 hours as needed for SEVERE pain only. Only take this medication when pain is unbearable and DO NOT DRIVE while under the influence of this medication. Admission HPI Per Admitting Provider 51-year-old female with past med significant for hypertension left breast cancer status post surgery/chemotherapy, history of BRCA gene mutation, chronic pain/fibromyalgia, anxiety DSO/mood DSO/PTSD, history portal vein thrombosis status post Coumadin, tobacco abuse presents with severe back pain radiating to right leg started a couple days ago. States pain is very severe. She is limping on the left leg to ambulate. Denies any fevers. No bowel or bladder incontinence. No numbness. No weakness. No headache or dizziness. No blurred visions. No runny nose or sore throat or cough. No chest pain or shortness of breath. Normal bowel and bladder movements. Past medical history as mentioned above Past surgical history breast capsulectomy periprosthetic, left complete removal of breast, laparoscopic cholecystectomy, ligation of oviducts, total hysterectomy Social history smokes 1 pack a day. No alcohol use. History of heroin abuse as per records. Family history no family stent file Admission Exam Per Admitting Provider General- Not in distress Head- atraumatic Eyes- PERRL ENT- oropharynx clear Neck- supple, no JVD, Lungs- clear to auscultation and percussion Heart- regular rate and rhythm; no murmur, no gallop, Abdomen- normal bowel sounds, soft, nontender, no distension Extremities- no pretibial edema, no erythema, painful right lower extremity movements Neuro- alert, oriented x 3; PERRL, no facial palsy; no dysarthria;moves extremities Musculoskeletal bilateral straight leg test positive Skin- warm & dry Principal Dx & Hospital Course #1 = Principal Diagnosis (1) Lumbar radiculopathy: Plan 51-year-old female with PMH of HTN, left breast cancer s/p surgery/chemotherapy, BRCA gene mutation, chronic pain/fibromyalgia, anxiety/mood disorder/PTSD, portal vein thrombosis status post Coumadin, tobacco abuse presented to the ED 09/11 with complaint of severe low back pain radiating to right lower extremity starting a couple of days ago [employer], denies febrile illness or bowel or bladder incontinence. She is being managed for the following: Severe low back pain/lumbar radiculopathy: Started few days ago [employer], radiating down to right leg associated with burning sensation. Pain management, orthospine consult, MRI lumbar spine negative for acute pathology. pain management evaluated, appreciate recommendation 09/15. PT/OT saw and patient was able to perform all tasks and bending/twisting at waist w/o c/o pain and moving with ease but subjectively c/o 10/10 pain. Will D/C with methylprednisolone taper, continue APAP and prn oxy IR #12 tabs only. Abnormal Urinalysis: Initial UA suggestive of UTI; however culture negative. completed 5 days of rocephin, no further antibiotics at discharge Chronic pain fibromyalgia anxiety PTSD: Continue home bupropion and sertraline High blood pressure, likely secondary to pain at presentation. Resolved. DVT prophylaxis Lovenox Disposition: PT/OT complete, discharge to home today Full code Discharge Exam Gen: WD/WN, NAD, A&O x3 HEENT: Normocephalic, atraumatic, conjunctivae moist, sclerae anicteric, mucous membranes moist. Lung: Clear to Auscultation bilaterally, no wheezes/rales/rhonchi Heart: Regular rate, regular rhythm, no murmurs, rubs, or gallops Abdomen: Soft, NT, ND +BS x 4 Extremities: No edema, good bed mobility when asked to examine, able to passive raise RLE/LLE with ease, + tightening of R hamstrings with SLR, nvi distally b/l Skin: Warm, no rash, negative turgor. Updated Medication List Medication Instructions Recorded Confirmed Type albuterol sulfate 90 mcg/actuation 2 puff inhalation Q6H PRN 07/28/23 07/28/23 History aerosol inhaler Shortness Of Breath Or Wheezing bupropion HCl 150 mg tablet,12 hr 150 mg PO BID 09/12/22 09/12/22 History sustained-release cyanocobalamin (vitamin B-12) 1,000 mcg PO DAILY 09/12/22 09/12/22 History 1,000 mcg tablet gabapentin 300 mg capsule 300 mg PO TID 09/12/22 09/12/22 History omeprazole 20 mg capsule,delayed 20 mg PO DAILY 09/12/22 09/12/22 History release sertraline 100 mg tablet 100 mg PO DAILY 09/12/22 09/12/22 History methylprednisolone 4 mg tablet See Taper PO QD@08 #48 tabs 09/16/22 Rx oxycodone 5 mg tablet 5 mg PO TID PRN pain #12 tabs 09/16/22 Rx Hospital Stay Data Consultations 09/12/22 02:57 ED Decision to Admit Stat 09/12/22 08:00 Consult Orthopedic Surgery Routine 09/14/22 15:24 Consult Pain Management Routine Diagnostic Imagining Performed Lumbar Spine MRI 09/15/22 14:03 MRI OF THE LUMBAR SPINE COMBO CLINICAL HISTORY: Chronic low back pain. Sciatica. COMPARISON STUDY: MRI of the lumbar spine dated 08/21/2021. CT of the lumbar spine dated 08/20/2021. TECHNIQUE: MRI of the lumbar spine is performed utilizing various T1 and T2- weighted sequences in the axial and sagittal planes. Contrast-enhanced sequences are acquired following the IV administration of 8.5 cc of Gadavist. FINDINGS: Lumbar spine: Vertebral body height and alignment are maintained throughout the lumbar spine. Normal marrow signal intensity is preserved throughout the visualized bony structures. The transverse and spinous processes appear intact. There is no evidence of spondylolysis. No destructive bony lesion is seen. Intervertebral disks: There is minimal disc desiccation. The disc spaces are maintained. Spinal cord: The visualized spinal cord is normal in morphology and signal intensity. The conus medullaris terminates at the L1-L2 interspace. No abnormal postcontrast enhancement is seen. The nerve roots of the cauda equina are normal in morphology. L1-L2: Unremarkable. L2-L3: Unremarkable. L3-L4: Unremarkable. L4-L5: Mild facet arthropathy is of no consequence. The central canal and neural foramina are patent. L5-S1: There is minimal central posterior disc protrusion with annular fissure. The central canal is clear. Facet arthropathy is of no consequence. The neural foramina are patent. Sacrum: The visualized sacrum is normal in morphology and signal intensity. Soft tissues: The paraspinous soft tissues are normal as visualized. The retroperitoneal structures are grossly unremarkable but incompletely assessed. IMPRESSION: 1. There is no disc herniation, central canal stenosis, or neural foraminal narrowing seen throughout the lumbar spine. 2. See above discussion for detailed level by level analysis. 3. No destructive bony process is seen. 4. There is no abnormal postcontrast enhancement. Dictated: 09/15/2022 7:33 PM Transcribed: 09/15/2022 7:52 PM Cruz [id number] [email or web address] [id number] Electronically signed by: Lance Marcelo M.D. 09/15/2022 8:31 PM Pending Results Patient Have Any Pending Studies at Discharge: No Discharge Instructions Given to Patient (Per Discharging Provider) MEDICATION CHANGES: Please take methylprednisolone taper as prescribed * 6 tablets for 2 days; 5 tablets for 3 days; 4 tablets for 3 days; 3 tablets for 3 days; 2 tablets for 3 days and 1 tablet for 3 days then stop * Do not take any other anti inflammatories while taking methylprednisolone - this includes naproxen, ibuprofen, advil, motrin, aleve Recommend taking tylenol 500mg three times a day while still having pain Oxycodone 5mg every 8 hours as needed for SEVERE pain only. Only take this medication when pain is unbearable and DO NOT DRIVE while under the influence of this medication. SUMMARY OF TEST RESULTS: Lumbar Spine MRI was negative for any acute abnormality PENDING TEST RESULTS: None RECOMMENDATIONS FOR FOLLOW-UP: Gradually increase activity as tolerated. Your back pain is felt to be musculoskeletal as MRI was negative. Recommend using ICE/Heat three times a day to help with pain. Also recommend routine stretching twice daily of the back and lower extremities. Take Methylprednisolone as prescribed. After you complete methylprednisolone you may then resume taking anti inflammatory medications for pain - this includes naproxen, ibuprofen, advil, motrin, aleve If symptoms worsen please see your Primary Care Provider. Please follow up with them as scheduled. OTHER INSTRUCTIONS: Seek medical attention if you have: * temperature above 101 * chest pain or trouble breathing * abdominal pain, nausea, vomiting * diarrhea, dark stools or bloody stools * any unanswered questions or concerns Call 911 if symptoms are severe. Please take good care of yourself. It has been a pleasure taking care of you. Please take care of yourself. If you have any questions regarding your recent hospitalization please contact [facility] and request Tien Ornelas @ [phone]. Total Time Total Time Spent Total Time Spent (In Minutes): 45 minutes Supervising Physician Co-Signing Physician Notes Patient seen and examined at bedside as a follow-up of severe low back pain and concern for lumbar radiculopathy but MRI has been repeated twice in the last 1 month with no nerve impingement or other acute findings noted. Pain management has evaluated, appreciate recommendation. On examination, patient on room air, sitting up on the bed comfortably with no facial grimacing and no support. Rest of the examinations as above. I have seen and examined the patient and have discussed the case with the provider above. I agree with the assessment and plan as stated. I will
== END 2022-09-16 12:40 | disposition home or self-care (01) ==
LOC: EDINP 21:34 → ED 21:34 → EDINP 09-12 19:41 → 3E 09-12 20:14